=== PATIENT | male | born 1955 | race African-American/Black ===

== ENCOUNTER 2019-05-25 16:12 | Inpatient (IN) | payer OTHER ==
[2019-05-25 18:53] VITALS: BMI 29.0
--- NOTE | 2019-05-25 20:47 | HP ---
COWS - Scale Resting Pulse: 0= [place] 80 or Below Sweatin= Chills/Flushing Restless Observation: 1= Difficult to Sit Still Pupil Size: 0= Normal to Room Light Bone or Joint Aches: 4=Acute Joint/Muscle Pain Runny Nose/ Eye Tearin= Nasal Congestion GI Upset > 30mins: 1= Stomach Cramp Tremor Observation: 0= None Yawning Observation: 1= 1-2x During Session Anxiety or Irritability: 2=Irritable/Anxious Goose Flesh Skin: 0=Smooth Skin COWS Score: 11 CIWA Score - Admission Criteria OASAS Guidelines: Admission for Medically Managed Detox: Requires at least one of the followin. CIWA greater than 12 2. Seizures within the past 24 hours 3. Delirium tremens within the past 24 hours 4. Hallucinations within the past 24 hours 5. Acute intervention needed for co occurring medical disorder 6. Acute intervention needed for co occurring psychiatric disorder 7. Severe withdrawal that cannot be handled at a lower level of care (continued vomiting, continued diarrhea, abnormal vital signs) requiring intravenous medication and/or fluids 8. Admission [facility] Chief Complaint: c/o worsening withdrawal sx's. Allergies/Adverse Reactions: Allergies Allergy/AdvReac Type Severity Reaction Status Date / Time lisinopril Allergy Verified 05/25/19 18:41 History of Present Illness: 63 Y.O. MALE WITH CRACK/COCAINE AND HEROINE DEPENDENCE HERE FOR DETOX. CLIENT IS SELF REFERRED. THIS IS HIS FIRST ADMISSION. HX/O DETOX TXMENT MANY YEARS AGO. PRESENTS TODAY WITH C/O WITHDRAWAL SX'S. COWS 11. UTOX + ADRINA, MOP. DENIES ANY SIGNIFICANT PERIOD OF CLEAN TIME, HX/O OVERDOSE, SEIZURE D/O. DOMICILED, RETIRED, DENIES LEGALS Exam Limitations: No Limitations - Ebola screening Have you traveled outside of the country in the last 21 days: No Have you had contact with anyone from an Ebola affected area: No Do you have a fever: No - Review of Systems Constitutional: Chills, Night Sweats, Changes in sleep EENT: reports: Nose Congestion, Dental Problems (BOTH DENTURES ONLY HAS TOP WITH HIM) Respiratory: reports: No Symptoms reported Cardiac: reports: No Symptoms Reported, Palpitations, Other (DEFIBILLATOR) GI: reports: Abdominal cramping : reports: Other (HESITANCY) Musculoskeletal: reports: Back Pain (CHRONIC) Integumentary: reports: No Symptoms Reported Neuro: reports: No Symptoms reported Endocrine: reports: No Symptoms Reported Hematology: reports: No Symptoms Reported Psychiatric: reports: Orientated x3, Agitated (IRRITABLE), Anxious Other Systems: Reviewed and Negative Patient History - Patient Medical History Hx Anemia: No Hx Asthma: Yes Hx Chronic Obstructive Pulmonary Disease (COPD): Yes Hx Cancer: No Hx Cardiac Disorders: Yes (ARRYTHMIA-DEFIBILLATOR) Hx Congestive Heart Failure: No Hx Hypertension: Yes Hx Hypercholesterolemia: Yes Hx Pacemaker: Yes (DEFIBILLATOR) HX Cerebrovascular Accident: No Hx Seizures: No Hx Dementia: No Hx Diabetes: No Hx Gastrointestinal Disorders: No Hx Liver Disease: No Hx Genitourinary Disorders: No Hx Sexually Transmitted Disorders: No Hx Renal Disease (ESRD): No Hx Thyroid Disease: No Hx Human Immunodeficiency Virus (HIV): No Hx Hepatitis C: No Hx Depression: No Hx Suicide Attempt: No Hx Bipolar Disorder: No Hx Schizophrenia: No - Patient Surgical History Past Surgical History: Yes Hx Abdominal Surgery: Yes (HERNIA REPAIR) Other Surgical History: 2014 Anesthesia Reaction: No - PPD History Previous Implant?: Yes Documented Results: Positive w/o proof Implanted On Prior [facility] Admission?: No PPD to be Administered?: No - Smoking Cessation Smoking history: Current every day smoker Have you smoked in the past 12 months: Yes Aproximately how many cigarettes per day: 20 Cigars Per Day: 0 Hx Chewing Tobacco Use: No Initiated information on smoking cessation: Yes 'Breaking Loose' booklet given: 05/25/19 - Substance & Tx. History Hx Alcohol Use: No Hx Substance Use: Yes Substance Use Type: Cocaine, Heroin Hx Substance Use Treatment: Yes ([facility]) - Substances abused Cocaine Substance route: Smoking Frequency: Daily Amount used: $50 Age of first use: 15 Date of last use: 05/25/19 Heroin Other (specify): HEROIN Substance route: Inhalation Frequency: Daily Amount used: 2 BAGS Age of first use: 15 Date of last use: 05/25/19 Family Disease History - Family Disease History Family Disease History: CA: Father ( THROAT CA), Brother (PANCREATIC - ), Other: Mother (ALCOHOLISM- FROM CIRRHOSIS) Admission Physical Exam BHS - Vital Signs Vital Signs: Vital Signs - 24 hr 05/25/19 18:40 Temperature 97.4 F L Pulse Rate 69 Respiratory 18 Rate Blood Pressure 123/73 - Physical General Appearance: Yes: Irritable, Anxious HEENTM: Yes: EOMI, Normocephalic, Normal Voice, EMELY, Pharynx Normal, Other ( UPPER DENTURES) Respiratory: Yes: Chest Non-Tender, Lungs Clear, Normal Breath Sounds, No Respiratory Distress, No Accessory Muscle Use Neck: Yes: No masses,lesions,Nodules, Supple, Trachea in good position Breast: Yes: Breast Exam Deferred Cardiology: Yes: Regular Rhythm, Regular Rate, S1, S2 Abdominal: Yes: Normal Bowel Sounds, Non Tender, Soft, Protuberent Genitourinary: Yes: Hesitency Back: Yes: Normal Inspection Musculoskeletal: Yes: full range of Motion, Gait Steady, Back pain (C/O) Extremities: Yes: Normal Capillary Refill, Normal Range of Motion, Non-Tender Neurological: Yes: Fully Oriented, Alert, Motor Strength 5/5, Normal Mood/Affect Integumentary: Yes: Dry, Warm Lymphatic: Yes: Within Normal Limits - Diagnostic (1) Opioid dependence with withdrawal Current Visit: Yes Status: Acute (2) Cocaine abuse, uncomplicated Current Visit: Yes Status: Acute (3) Nicotine dependence Current Visit: Yes Status: Chronic Qualifiers: Nicotine product type: cigarettes Substance use status: uncomplicated Qualified Code(s): F17.210 - Nicotine dependence, cigarettes, uncomplicated (4) HTN (hypertension) Current Visit: Yes Status: Chronic Qualifiers: Hypertension type: essential hypertension Qualified Code(s): I10 - Essential (primary) hypertension (5) COPD (chronic obstructive pulmonary disease) Current Visit: Yes Status: Chronic Qualifiers: COPD type: unspecified COPD Qualified Code(s): J44.9 - Chronic obstructive pulmonary disease, unspecified (6) Asthma Current Visit: Yes Status: Chronic Qualifiers: Asthma severity: mild Asthma persistence: intermittent Asthma complication type: uncomplicated Qualified Code(s): J45.20 - Mild intermittent asthma, uncomplicated (7) HLD (hyperlipidemia) Current Visit: Yes Status: Chronic Qualifiers: Hyperlipidemia type: unspecified Qualified Code(s): E78.5 - Hyperlipidemia , unspecified (8) Cardiac defibrillator in place Current Visit: Yes Status: Chronic Cleared for Admission S - Detox or Rehab S Level of Care: Medically Managed Detox Regimen/Protocol: Methadone Claeared for Rehab Admission: No Breathalyzer - Breathalyzer Breathalyzer: 0 Urine Drug Screen - Test Device Lot number: [id number] Expiration date: 01/29/21 - Control Is test valid?: Yes - Results Drug screen NEGATIVE: No Urine drug screen results: ADRIAN-Cocaine, MOP-Opiates Inpatient Rehab Admission - Rehab Decision to Admit Inpatient rehab admission?: No
[2019-05-25] MEDS ORDERED: NALOXONE HCL 0.4 MG/ML VIAL IVPUSH PRN (20:57)
[2019-05-25] MEDS ORDERED: hydrOXYzine PAMOATE 25 MG CAPSULE (FP) PO PRN (20:57)
[2019-05-25] MEDS ORDERED: MAGNESIUM HYDROX 2400MG/30ML ORAL SUSPENSION 30 ML CUP PO PRN (20:57)
[2019-05-25] MEDS ORDERED: ONDANSETRON *ODT* 4 MG TABLET SL PRN (20:57)
[2019-05-25] MEDS ORDERED: DICYCLOMINE HCL 10 MG CAPSULE PO PRN (20:57)
[2019-05-25] MEDS ORDERED: MELATONIN 5 MG TABLETS PO PRN (20:57)
[2019-05-25] MEDS ORDERED: METHOCARBAMOL 500 MG TABLET PO PRN (20:57)
[2019-05-25] MEDS ORDERED: BISMUTH SUBSALICYLATE 524 MG/30 ML UD PO PRN (20:57)
[2019-05-25] MEDS ORDERED: ACETAMINOPHEN 325 MG TABLET (FP) PO PRN (20:57)
[2019-05-25] MEDS ORDERED: NICOTINE POLACRILEX 2 MG GUM BUC PRN (20:57)
[2019-05-25] MEDS ORDERED: guaiFENesin 200 MG/10 ML 10 ML UNIT-DOSE CUPS PO PRN (20:57)
[2019-05-25] MEDS ORDERED: MENTHOL/PHENOL 1 EACH UD MM PRN (20:57)
[2019-05-25] MEDS ORDERED: MAG HYDROX/AL HYDROX/SIMETH 30 ML UNIT-DOSE CUP PO PRN (20:57)
[2019-05-25] MEDS ORDERED: MAGNESIUM CITRATE 300 ML BOTTLE PO PRN (20:57)
[2019-05-25] MEDS ORDERED: P-EPHED 60MG/TRIPROLIDI 2.5MG TABLET PO PRN (20:57)
[2019-05-25] MEDS ORDERED: METHADONE HCL 10 MG TABLET (FOR DETOX USE ONLY) PO ONE (23:00)
[2019-05-25] MEDS: THIAMINE HCL 100 MG TABLET (FP) PO SCH (23:08)
[2019-05-25] MEDS: ATORVASTATIN CA 40 MG TABLET (FP) PO SCH (23:08)
--- NOTE | 2019-05-26 09:46 | PN ---
BHS COWS - Scale Resting Pulse: 0= [place] 80 or Below Sweatin= Chills/Flushing Restless Observation: 1= Difficult to Sit Still Pupil Size: 1= Pupils >than Normal Bone or Joint Aches: 1= Mild Discomfort Runny Nose/ Eye Tearin= Nasal Congestion GI Upset > 30mins: 1= Stomach Cramp Tremor Observation of Outstretched Hands: 2= Slight Tremor Visible Yawning Observation: 1= 1-2x During Session Anxiety or Irritability: 2=Irritable/Anxious Goose Flesh Skin: 0=Smooth Skin COWS Score: 11 BHS Progress Note (SOAP) Subjective: alert,irritable,anxious,interrupted sleep,pain in the body Objective: 05/26/19 09:45 Vital Signs Temperature 99 F 05/26/19 09:30 Pulse Rate 70 05/26/19 09:30 Respiratory Rate 18 05/26/19 09:30 Blood Pressure 131/93 05/26/19 09:30 O2 Sat by Pulse Oximetry (%) 05/26/19 09:46 labs pending Assessment: 05/26/19 09:46 withdrawal symptom Plan: continue detox
[2019-05-26] MEDS ORDERED: RIVAROXABAN 20 MG TABLET PO SCH (10:00)
[2019-05-26] MEDS ORDERED: DILTIAZEM HCL 240 MG PO SCH (10:00)
[2019-05-26] MEDS ORDERED: METHADONE HCL 5 MG TABLET (FOR DETOX USE ONLY) PO ONE (10:00)
[2019-05-26] MEDS ORDERED: CARVEDILOL 6.25 MG TABLET (FP) PO SCH (10:00)
[2019-05-26 10:03] LABS: ALBUMIN 3.1 g/dl (3.4-5.0); BILIRUBIN,TOTAL 0.5 mg/dL (0.2-1); BLOOD UREA NITROGEN 13.5 mg/dL (7-18); CALCIUM 8.7 mg/dL (8.5-10.1); CREATININE 1.2 mg/dL (0.55-1.3); POTASSIUM 4.9 mmol/L (3.5-5.1); TOT PROT 6.1 g/dl (6.4-8.2)
[2019-05-26 10:08] LABS: HEMOGLOBIN 9.9 GM/dL (11.7-16.9); MCH 28.1 pg (25.7-33.7); MCHC 31.8 g/dl (32.0-35.9); MEAN CELL VOLUME 88.5 fl (80-96); MEAN PLT VOLUME 8.7 fl (7.5-11.1); RBC 3.51 M/mm3 (4.00-5.60); RDW 17.1 % (11.9-15.9); WHITE BLOOD COUNT 5.5 K/mm3 (4.0-10.0)
[2019-05-26] MEDS: PANTOPRAZOLE 40 MG TABLET (FP) PO SCH (10:29)
[2019-05-26] MEDS: PRENATAL VITAMINS W/ FOLIC ACID TABLET (FP) PO SCH (10:29)
[2019-05-26] MEDS: SPIRONOLACTONE 25 MG TABLET (FP) PO SCH (10:30)
[2019-05-26] MEDS: BUDESONIDE/FORMETEROL FUMARATE 160/4.5 mcg INHALER IH SCH (10:30)
[2019-05-26] MEDS: FUROSEMIDE 20 MG TABLET (FP) PO SCH (10:30)
--- NOTE | 2019-05-26 10:33 | EKG ---
Test Reason : Blood Pressure : / mmHG Vent. Rate : 071 BPM Atrial Rate : 071 BPM P-R Int : 180 ms QRS Dur : 126 ms QT Int : 442 ms P-R-T Axes : 053 -42 202 degrees QTc Int : 480 ms NORMAL SINUS RHYTHM LEFT AXIS DEVIATION NON-SPECIFIC INTRA-VENTRICULAR CONDUCTION BLOCK MARKED T WAVE ABNORMALITY, CONSIDER ANTEROLATERAL ISCHEMIA ABNORMAL ECG NO PREVIOUS ECGS AVAILABLE Confirmed by Jose R Junior MD ([id number]) on 05/26/2019 10:33:08 AM Referred By: Confirmed By:Jose R Junior MD
[2019-05-26] MEDS: NICOTINE 21 MG/24 HOURS TOPICAL PATCH TD SCH (10:35)
--- NOTE | 2019-05-26 10:43 | PN ---
BHS Progress Note Note: patient is on carvedilol 6.25 po po bid instead of 0nce a day
[2019-05-26 10:48] LABS: PLATELET COUNT 342 K/MM3 (134-434)
[2019-05-26] MEDS: ACETAMINOPHEN 325 MG TABLET (FP) PO PRN (14:58)
[2019-05-26] MEDS: THIAMINE HCL 100 MG TABLET (FP) PO SCH (22:27)
[2019-05-26] MEDS: ATORVASTATIN CA 40 MG TABLET (FP) PO SCH (22:27)
[2019-05-26] MEDS: CARVEDILOL 6.25 MG TABLET (FP) PO SCH (22:27)
[2019-05-27] MEDS: ACETAMINOPHEN 325 MG TABLET (FP) PO PRN (07:46)
[2019-05-27] MEDS: FUROSEMIDE 20 MG TABLET (FP) PO SCH (09:53)
[2019-05-27] MEDS: PRENATAL VITAMINS W/ FOLIC ACID TABLET (FP) PO SCH (09:53)
[2019-05-27] MEDS: SPIRONOLACTONE 25 MG TABLET (FP) PO SCH (09:53)
[2019-05-27] MEDS: CARVEDILOL 6.25 MG TABLET (FP) PO SCH ×2 (09:53→22:21)
[2019-05-27] MEDS: PANTOPRAZOLE 40 MG TABLET (FP) PO SCH (09:53)
[2019-05-27] MEDS: BUDESONIDE/FORMETEROL FUMARATE 160/4.5 mcg INHALER IH SCH (09:53)
[2019-05-27] MEDS: NICOTINE 21 MG/24 HOURS TOPICAL PATCH TD SCH (09:55)
[2019-05-27] MEDS ORDERED: METHADONE HCL 10 MG TABLET (FOR DETOX USE ONLY) PO ONE (10:00)
--- NOTE | 2019-05-27 11:21 | PN ---
BHS COWS - Scale Resting Pulse: 1= [place] 81-100 Sweatin= Chills/Flushing Restless Observation: 1= Difficult to Sit Still Pupil Size: 0= Normal to Room Light Bone or Joint Aches: 1= Mild Discomfort Runny Nose/ Eye Tearin= None GI Upset > 30mins: 1= Stomach Cramp Tremor Observation of Outstretched Hands: 0= None Yawning Observation: 0= None Anxiety or Irritability: 1=Feels Anxious/Irritable Goose Flesh Skin: 0=Smooth Skin COWS Score: 6 BHS Progress Note (SOAP) Subjective: pt doing well with detox protocol, open to try suboxone for manager intermediate treatment of OUD O: Laboratory Tests 05/26/19 05/26/19 05/26/19 07:00 07:00 07:00 WBC 5.5 RBC 3.51 L Hgb 9.9 L Hct 31.0 L MCV 88.5 MCH 28.1 MCHC 31.8 L RDW 17.1 H Plt Count 342 MPV 8.7 Sodium 139 Potassium 4.9 Chloride 103 Carbon Dioxide 33 H Anion Gap 3 L BUN 13.5 Creatinine 1.2 Est GFR (CKD-EPI)AfAm 74.66 Est GFR (CKD-EPI)NonAf 64.42 Random Glucose 83 Calcium 8.7 Total Bilirubin 0.5 AST 21 ALT 19 Alkaline Phosphatase 74 Total Protein 6.1 L Albumin 3.1 L RPR Titer Nonreactive mild anemia' low protein a/p: OUD- continue detox protocol, outpt Suboxone treatment f/u PCP re anemia
[2019-05-27 12:48] LABS: PH,URINE 8.5 (5.0-8.0); URINE APPEARANCE CLEAR; URINE BILIRUBIN NEGATIVE (NEGATIVE); URINE COLOR YELLOW; URINE GLUCOSE (UA) NEGATIVE (NEGATIVE); URINE KETONE NEGATIVE (NEGATIVE); URINE LEUK ESTERASE NEGATIVE (NEGATIVE); URINE NITRITE NEGATIVE (NEGATIVE); URINE PROTEIN NEGATIVE (NEGATIVE); URINE UROBILINOGEN 0.2 mg/dL (0.2-1.0)
[2019-05-27] MEDS: RIVAROXABAN 20 MG TABLET PO SCH (17:47)
[2019-05-27] MEDS: ATORVASTATIN CA 40 MG TABLET (FP) PO SCH (22:21)
[2019-05-27] MEDS: THIAMINE HCL 100 MG TABLET (FP) PO SCH (22:21)
[2019-05-28] MEDS ORDERED: METHADONE HCL 5 MG TABLET (FOR DETOX USE ONLY) PO ONE (06:00)
--- NOTE | 2019-05-28 10:00 | PN ---
BHS COWS - Scale Resting Pulse: 0= [place] 80 or Below Sweatin= Chills/Flushing Restless Observation: 1= Difficult to Sit Still Pupil Size: 0= Normal to Room Light Bone or Joint Aches: 1= Mild Discomfort Runny Nose/ Eye Tearin= Nasal Congestion GI Upset > 30mins: 1= Stomach Cramp Tremor Observation of Outstretched Hands: 1= Tremor [place], Not Seen Yawning Observation: 0= None Anxiety or Irritability: 1=Feels Anxious/Irritable Goose Flesh Skin: 0=Smooth Skin COWS Score: 7 BHS Progress Note (SOAP) Subjective: alert,irritable,anxious,interrupted sleep Objective: 05/28/19 09:59 Vital Signs Temperature 98.1 F 05/28/19 09:09 Pulse Rate 78 05/28/19 09:09 Respiratory Rate 16 05/28/19 09:09 Blood Pressure 146/88 05/28/19 09:09 O2 Sat by Pulse Oximetry (%) Assessment: 05/28/19 09:59 withdrawal symptom Plan: continue detox,discharge in am
[2019-05-28] MEDS: SPIRONOLACTONE 25 MG TABLET (FP) PO SCH (10:37)
[2019-05-28] MEDS: PRENATAL VITAMINS W/ FOLIC ACID TABLET (FP) PO SCH (10:37)
[2019-05-28] MEDS: PANTOPRAZOLE 40 MG TABLET (FP) PO SCH (10:37)
[2019-05-28] MEDS: FUROSEMIDE 20 MG TABLET (FP) PO SCH (10:37)
[2019-05-28] MEDS: NICOTINE 21 MG/24 HOURS TOPICAL PATCH TD SCH (10:38)
[2019-05-28] MEDS: CARVEDILOL 6.25 MG TABLET (FP) PO SCH ×2 (10:38→22:19)
[2019-05-28] MEDS: BUDESONIDE/FORMETEROL FUMARATE 160/4.5 mcg INHALER IH SCH (10:38)
[2019-05-28] MEDS: RIVAROXABAN 20 MG TABLET PO SCH (17:47)
[2019-05-28] MEDS: ACETAMINOPHEN 325 MG TABLET (FP) PO PRN (19:42)
[2019-05-28] MEDS: THIAMINE HCL 100 MG TABLET (FP) PO SCH (22:19)
[2019-05-28] MEDS: ATORVASTATIN CA 40 MG TABLET (FP) PO SCH (22:19)
--- NOTE | 2019-05-29 08:31 | DS ---
[facility] Detox Discharge Summary Admission Date: 05/25/19 Discharge Date: 05/29/19 - History Present History: Cocaine Dependence, Opioid Dependence Additional Comments: Follow up with primary care provider. - Physical Exam Results Vital Signs: Vital Signs Temperature 97.7 F 05/29/19 06:21 Pulse Rate 66 05/29/19 06:21 Respiratory Rate 18 05/29/19 06:21 Blood Pressure 122/91 05/29/19 06:21 O2 Sat by Pulse Oximetry (%) - Treatment Hospital Course: Detox Protocol Followed, Detoxed Safely, Responded well, Discharged Condition Good Patient has Accepted a Rehab Referral to: Outpatient referral - Medication Discharge Medications: Ambulatory Orders Atorvastatin Ca [Lipitor] 40 mg PO HS 05/25/19 Budesonide/Formeterol Fumarate [SYMBICORT 160/4.5mcg -] 1 inh PO DAILY 05/25/19 Carvedilol 6.25 mg PO DAILY 05/25/19 Diltiazem HCl [Diltiazem ER] 240 mg PO DAILY 05/25/19 Furosemide [Lasix -] 20 mg PO DAILY 05/25/19 Pantoprazole Sodium 40 mg PO DAILY 05/25/19 Rivaroxaban [Xarelto -] 20 mg PO DAILY 05/25/19 Spironolactone 25 mg PO DAILY 05/25/19 - Diagnosis (1) Cocaine abuse, uncomplicated Status: Acute (2) Opioid dependence with withdrawal Status: Acute (3) Asthma Status: Chronic Qualifiers: Asthma severity: mild Asthma persistence: intermittent Asthma complication type: uncomplicated Qualified Code(s): J45.20 - Mild intermittent asthma, uncomplicated (4) COPD (chronic obstructive pulmonary disease) Status: Chronic Qualifiers: COPD type: unspecified COPD Qualified Code(s): J44.9 - Chronic obstructive pulmonary disease, unspecified (5) Cardiac defibrillator in place Status: Chronic (6) HLD (hyperlipidemia) Status: Chronic Qualifiers: Hyperlipidemia type: unspecified Qualified Code(s): E78.5 - Hyperlipidemia , unspecified (7) HTN (hypertension) Status: Chronic Qualifiers: Hypertension type: essential hypertension Qualified Code(s): I10 - Essential (primary) hypertension (8) Nicotine dependence Status: Chronic Qualifiers: Nicotine product type: cigarettes Substance use status: uncomplicated Qualified Code(s): F17.210 - Nicotine dependence, cigarettes, uncomplicated - AMA Did Patient Leave Against Medical Advice: No
[2019-05-29] MEDS: CARVEDILOL 6.25 MG TABLET (FP) PO SCH (09:09)
[2019-05-29] MEDS: FUROSEMIDE 20 MG TABLET (FP) PO SCH (09:09)
[2019-05-29] MEDS: NICOTINE 21 MG/24 HOURS TOPICAL PATCH TD SCH (09:10)
[2019-05-29] MEDS: BUDESONIDE/FORMETEROL FUMARATE 160/4.5 mcg INHALER IH SCH (09:10)
[2019-05-29] MEDS: PANTOPRAZOLE 40 MG TABLET (FP) PO SCH (09:10)
[2019-05-29] MEDS: SPIRONOLACTONE 25 MG TABLET (FP) PO SCH (09:10)
[2019-05-29] MEDS: PRENATAL VITAMINS W/ FOLIC ACID TABLET (FP) PO SCH (09:10)
[2019-05-29 09:33] VITALS: BP 137/84; PULSE 67; TEMP 96.8
== END 2019-05-29 09:30 | disposition home or self-care (01) | DRG 773 ==
LOC: YASAS 16:12 → Y6N 21:14
PROVIDERS: ADMIT Surgery; ATTEND Surgery
PROC: HZ2ZZZZ Detoxification Services for Substance Abuse Treatment (ICD-10-PCS; principal; 2019-05-25)
DX: F11.23 Opioid dependence with withdrawal (principal); F14.20 Cocaine dependence, uncomplicated; F17.210 Nicotine dependence, cigarettes, uncomplicated; J45.20 Mild intermittent asthma, uncomplicated; J44.9 Chronic obstructive pulmonary disease, unspecified; I10 Essential (primary) hypertension; D64.9 Anemia, unspecified; Z86.73 Personal history of transient ischemic attack (TIA), and cerebral infarction without residual deficits; Z95.810 Presence of automatic (implantable) cardiac defibrillator
CPT/HCPCS: 36415; 71045-TC-FY; 80053; 81003; 85027; 86593; 93005; 93010

== ENCOUNTER 2019-07-28 13:16 | Inpatient (IN) | payer OTHER ==
[2019-07-28 15:48] VITALS: BMI 29.8
--- NOTE | 2019-07-28 16:37 | HP ---
COWS - Scale Resting Pulse: 1= [place] 81-100 Sweatin= Chills/Flushing Restless Observation: 1= Difficult to Sit Still Pupil Size: 1= Pupils >than Normal Bone or Joint Aches: 2= Severe Diffuse Aches Runny Nose/ Eye Tearin= Nasal Congestion GI Upset > 30mins: 2= Nausea/Diarrhea Tremor Observation: 1= Tremor [place], Not Seen Yawning Observation: 1= 1-2x During Session Anxiety or Irritability: 1=Feels Anxious/Irritable Goose Flesh Skin: 0=Smooth Skin COWS Score: 12 CIWA Score - Admission Criteria OASAS Guidelines: Admission for Medically Managed Detox: Requires at least one of the followin. CIWA greater than 12 2. Seizures within the past 24 hours 3. Delirium tremens within the past 24 hours 4. Hallucinations within the past 24 hours 5. Acute intervention needed for co occurring medical disorder 6. Acute intervention needed for co occurring psychiatric disorder 7. Severe withdrawal that cannot be handled at a lower level of care (continued vomiting, continued diarrhea, abnormal vital signs) requiring intravenous medication and/or fluids 8. Admission [facility] Chief Complaint: here for heroin detox Allergies/Adverse Reactions: Allergies Allergy/AdvReac Type Severity Reaction Status Date / Time lisinopril Allergy Verified 07/28/19 15:33 History of Present Illness: 63 yo with CAD with low ejection fraction and with heart debrillator in place, HTN, high cholesterol last in detox about 3 weeks ago at [facility] and 2 months ago here, says he keeps relapsing. Pt states he lives with his . No h/o of OD, retired. Does not want to go for residential MAT or rehab. Heroin 1- 1/2 bags/day, no cocaine- $50/day PCP- in [place] [facility]- suzanna, Mop, oxy, MTD - Ebola screening Have you traveled outside of the country in the last 21 days: No Have you had contact with anyone from an Ebola affected area: No Do you have a fever: No - Review of Systems Constitutional: No Symptoms Reported, Weight Stable EENT: reports: No Symptoms Reported Respiratory: reports: No Symptoms reported Cardiac: reports: No Symptoms Reported GI: reports: No Symptoms Reported : reports: No Symptoms Reported Musculoskeletal: reports: No Symptoms Reported Integumentary: reports: No Symptoms Reported Neuro: reports: No Symptoms reported Endocrine: reports: No Symptoms Reported Hematology: reports: No Symptoms Reported Psychiatric: reports: No Sypmtoms Reported Patient History - Patient Medical History Hx Anemia: No Hx Asthma: Yes Hx Chronic Obstructive Pulmonary Disease (COPD): Yes Hx Cancer: No Hx Cardiac Disorders: Yes (ARRYTHMIA-DEFIBILLATOR) Hx Congestive Heart Failure: No Hx Hypertension: No Hx Hypercholesterolemia: Yes Hx Pacemaker: Yes (DEFIBILLATOR) HX Cerebrovascular Accident: No Hx Seizures: No Hx Dementia: No Hx Diabetes: No Hx Gastrointestinal Disorders: No Hx Liver Disease: No Hx Genitourinary Disorders: No Hx Sexually Transmitted Disorders: No Hx Renal Disease (ESRD): No Hx Thyroid Disease: No Hx Human Immunodeficiency Virus (HIV): No Hx Hepatitis C: No Hx Depression: No Hx Suicide Attempt: No Hx Bipolar Disorder: No Hx Schizophrenia: No - Patient Surgical History Past Surgical History: Yes Hx Neurologic Surgery: No Hx Cataract Extraction: No Hx Cardiac Surgery: No Hx Lung Surgery: No Hx Breast Surgery: No Hx Breast Biopsy: No Hx Abdominal Surgery: Yes (HERNIA REPAIR) Hx Appendectomy: No Hx Cholecystectomy: No Hx Genitourinary Surgery: No Hx Section: No Hx Orthopedic Surgery: No Other Surgical History: 2014 Anesthesia Reaction: No - Smoking Cessation Smoking history: Current every day smoker Have you smoked in the past 12 months: Yes Aproximately how many cigarettes per day: 20 Cigars Per Day: 0 Hx Chewing Tobacco Use: No Initiated information on smoking cessation: Yes 'Breaking Loose' booklet given: 07/28/19 - Substances abused Cocaine Substance route: Smoking Frequency: Daily Amount used: $50 Age of first use: 15 Date of last use: 07/28/19 Heroin Other (specify): HEROIN Substance route: Inhalation Frequency: Daily Amount used: 2 BAGS Age of first use: 15 Date of last use: 07/28/19 Crack Substance route: Smoking Frequency: Daily Amount used: $50 Age of first use: 15 Date of last use: 07/28/19 Family Disease History - Family Disease History Family Disease History: CA: Father ( THROAT CA), Brother (PANCREATIC - ), Other: Mother (ALCOHOLISM- FROM CIRRHOSIS) Admission Physical Exam BHS - Vital Signs Vital Signs: Vital Signs - 24 hr 07/28/19 15:32 Temperature 97.8 F Pulse Rate 63 Respiratory 18 Rate Blood Pressure 120/83 - Physical General Appearance: Yes: Within Normal Limits, No Apparent Distress HEENTM: Yes: Hearing grossly Normal Respiratory: Yes: Lungs Clear Neck: Yes: No masses,lesions,Nodules Cardiology: Yes: Within Normal Limits, Regular Rate, Systolic Murmur Abdominal: Yes: Within Normal Limits Genitourinary: Yes: Within Normal Limits Back: Yes: Within Normal Limits Musculoskeletal: Yes: Within Normal Limits Extremities: Yes: Within Normal Limits Neurological: Yes: Within Normal Limits, wool tamper II-XII NML intact, Fully Oriented, Alert Integumentary: Yes: Within Normal Limits Lymphatic: Yes: Within Normal Limits - Diagnostic (1) Cocaine abuse, uncomplicated Current Visit: No Status: Acute (2) Opioid dependence with withdrawal Current Visit: No Status: Acute (3) Asthma Current Visit: No Status: Chronic Qualifiers: Asthma severity: mild Asthma persistence: intermittent Asthma complication type: uncomplicated Qualified Code(s): J45.20 - Mild intermittent asthma, uncomplicated (4) Cardiac defibrillator in place Current Visit: No Status: Chronic (5) HLD (hyperlipidemia) Current Visit: No Status: Chronic Qualifiers: Hyperlipidemia type: unspecified Qualified Code(s): E78.5 - Hyperlipidemia , unspecified (6) HTN (hypertension) Current Visit: No Status: Chronic Qualifiers: Hypertension type: essential hypertension Qualified Code(s): I10 - Essential (primary) hypertension (7) Nicotine dependence Current Visit: No Status: Chronic Qualifiers: Nicotine product type: cigarettes Substance use status: uncomplicated Qualified Code(s): F17.210 - Nicotine dependence, cigarettes, uncomplicated Breathalyzer - Breathalyzer Breathalyzer: 0 Urine Drug Screen - Test Device Lot number: [id number] Expiration date: 05/01/21 - Control Is test valid?: Yes - Results Drug screen NEGATIVE: No Urine drug screen results: SUZANNA-Cocaine, MOP-Opiates, OXY-Oxycodone, MTD- Methadone Inpatient Rehab Admission - Rehab Decision to Admit Inpatient rehab admission?: No
[2019-07-28] MEDS ORDERED: NALOXONE HCL 0.4 MG/ML VIAL IM PRN (16:43)
[2019-07-28] MEDS ORDERED: METHOCARBAMOL 500 MG TABLET PO PRN (16:43)
[2019-07-28] MEDS ORDERED: hydrOXYzine PAMOATE 25 MG CAPSULE (FP) PO PRN (16:43)
[2019-07-28] MEDS ORDERED: METHADONE HCL 10 MG TABLET (FOR DETOX USE ONLY) PO ONE (16:43)
[2019-07-28] MEDS ORDERED: ACETAMINOPHEN 325 MG TABLET (FP) PO PRN ×2 (16:43)
[2019-07-28] MEDS ORDERED: clonazePAM 0.5 MG TABLET PO PRN (16:43)
[2019-07-28] MEDS ORDERED: MELATONIN 5 MG TABLETS PO PRN (16:43)
[2019-07-28] MEDS ORDERED: IBUPROFEN 400 MG TABLET (FP) PO PRN (16:43)
[2019-07-28] MEDS ORDERED: MAGNESIUM HYDROX 2400MG/30ML ORAL SUSPENSION 30 ML CUP PO PRN (16:43)
[2019-07-28] MEDS ORDERED: BISMUTH SUBSALICYLATE 524 MG/30 ML UD PO PRN (16:43)
[2019-07-28] MEDS ORDERED: cloNIDine HCL 0.1 MG TABLET PO PRN (16:43)
[2019-07-28] MEDS ORDERED: MENTHOL/PHENOL 1 EACH UD MM PRN (16:43)
[2019-07-28] MEDS ORDERED: MAGNESIUM CITRATE 300 ML BOTTLE PO PRN (16:43)
[2019-07-28] MEDS ORDERED: MAG HYDROX/AL HYDROX/SIMETH 30 ML UNIT-DOSE CUP PO PRN (16:43)
[2019-07-28] MEDS ORDERED: NICOTINE POLACRILEX 4 MG GUM BUC PRN (16:43)
[2019-07-28] MEDS ORDERED: PNEUMOC 13-VAL CONJ-DIP CRM/PF 0.5 ML DISP.SYRIN IM ONE (17:35)
[2019-07-28] MEDS: RIVAROXABAN 20 MG TABLET PO SCH (19:01)
[2019-07-28] MEDS: ALBUTEROL SO4 8 GM HFA INHALER IH PRN (19:03)
[2019-07-28] MEDS: BUDESONIDE/FORMETEROL FUMARATE 160/4.5 mcg INHALER IH SCH (19:04)
[2019-07-28] MEDS: CARVEDILOL 6.25 MG TABLET (FP) PO SCH (22:26)
[2019-07-28] MEDS: ATORVASTATIN CA 40 MG TABLET (FP) PO SCH (22:26)
[2019-07-28] MEDS: THIAMINE HCL 100 MG TABLET (FP) PO SCH (22:26)
[2019-07-29] MEDS ORDERED: METHADONE HCL 5 MG TABLET (FOR DETOX USE ONLY) PO ONE (10:00)
--- NOTE | 2019-07-29 10:02 | PN ---
BHS COWS - Scale Resting Pulse: 0= [place] 80 or Below Sweatin= Chills/Flushing Restless Observation: 1= Difficult to Sit Still Pupil Size: 1= Pupils >than Normal Bone or Joint Aches: 2= Severe Diffuse Aches Runny Nose/ Eye Tearin= Nasal Congestion GI Upset > 30mins: 2= Nausea/Diarrhea Tremor Observation of Outstretched Hands: 2= Slight Tremor Visible Yawning Observation: 1= 1-2x During Session Anxiety or Irritability: 2=Irritable/Anxious Goose Flesh Skin: 0=Smooth Skin COWS Score: 13 BHS Progress Note (SOAP) Subjective: alert,irritable,anxious,interrupted sleep,tremor,pain in the body and back Objective: 07/29/19 10:01 Vital Signs Temperature 98.2 F 07/29/19 09:16 Pulse Rate 70 07/29/19 09:16 Respiratory Rate 18 07/29/19 09:16 Blood Pressure 124/71 07/29/19 09:16 O2 Sat by Pulse Oximetry (%) labs pending Assessment: 07/29/19 10:01 withdrawal symptom Plan: continue detox methadone regimen
[2019-07-29 10:11] LABS: HEMATOCRIT 30.4 % (35.4-49); HEMOGLOBIN 9.6 GM/dL (11.7-16.9); MCH 27.9 pg (25.7-33.7); MCHC 31.5 g/dl (32.0-35.9); MEAN CELL VOLUME 88.6 fl (80-96); MEAN PLT VOLUME 9.3 fl (7.5-11.1); PLATELET COUNT 242 K/MM3 (134-434); RBC 3.43 M/mm3 (4.00-5.60); RDW 16.5 % (11.9-15.9); WHITE BLOOD COUNT 4.9 K/mm3 (4.0-10.0)
[2019-07-29 10:17] LABS: ALBUMIN 3.4 g/dl (3.4-5.0); BILIRUBIN,TOTAL 0.3 mg/dL (0.2-1); CALCIUM 8.3 mg/dL (8.5-10.1); CREATININE 1.5 mg/dL (0.55-1.3); POTASSIUM 4.4 mmol/L (3.5-5.1)
[2019-07-29] MEDS: CARVEDILOL 6.25 MG TABLET (FP) PO SCH ×2 (10:28→22:28)
[2019-07-29] MEDS: PRENATAL VITAMINS W/ FOLIC ACID TABLET (FP) PO SCH (10:28)
[2019-07-29] MEDS: PANTOPRAZOLE 40 MG TABLET (FP) PO SCH (10:29)
[2019-07-29] MEDS: BUDESONIDE/FORMETEROL FUMARATE 160/4.5 mcg INHALER IH SCH (10:29)
[2019-07-29] MEDS: FUROSEMIDE 20 MG TABLET (FP) PO SCH (10:29)
[2019-07-29] MEDS: SPIRONOLACTONE 25 MG TABLET (FP) PO SCH (10:29)
[2019-07-29] MEDS ORDERED: PNEUMOCOCCAL 23 VACCINE 0.5 ML VIAL IM ONE (12:00)
[2019-07-29] MEDS: ALBUTEROL SO4 8 GM HFA INHALER IH PRN ×2 (12:53→17:50)
[2019-07-29] MEDS: RIVAROXABAN 20 MG TABLET PO SCH (19:04)
[2019-07-29] MEDS: ALBUTEROL SO4 0.083% IH SOL 2.5 MG/3 ML VIAL.NEB. NEB PRN (20:44)
[2019-07-29] MEDS: ATORVASTATIN CA 40 MG TABLET (FP) PO SCH (22:28)
[2019-07-29] MEDS: THIAMINE HCL 100 MG TABLET (FP) PO SCH (22:28)
[2019-07-30] MEDS: FERROUS SO4 325 MG TABLET (FP) PO SCH ×2 (07:00→17:29)
[2019-07-30] MEDS: ALBUTEROL SO4 0.083% IH SOL 2.5 MG/3 ML VIAL.NEB. NEB PRN (07:29)
[2019-07-30] MEDS ORDERED: METHADONE HCL 10 MG TABLET (FOR DETOX USE ONLY) PO ONE (10:00)
[2019-07-30] MEDS: SPIRONOLACTONE 25 MG TABLET (FP) PO SCH (10:09)
[2019-07-30] MEDS: PRENATAL VITAMINS W/ FOLIC ACID TABLET (FP) PO SCH (10:09)
[2019-07-30] MEDS: PANTOPRAZOLE 40 MG TABLET (FP) PO SCH (10:10)
[2019-07-30] MEDS: FUROSEMIDE 20 MG TABLET (FP) PO SCH (10:10)
[2019-07-30] MEDS: CARVEDILOL 6.25 MG TABLET (FP) PO SCH ×2 (10:10→22:24)
[2019-07-30] MEDS: BUDESONIDE/FORMETEROL FUMARATE 160/4.5 mcg INHALER IH SCH (10:11)
--- NOTE | 2019-07-30 10:29 | PN ---
S COWS - Scale Resting Pulse: 0= [place] 80 or Below Sweatin= No chills or Flushing Restless Observation: 1= Difficult to Sit Still Pupil Size: 1= Pupils >than Normal Bone or Joint Aches: 1= Mild Discomfort Runny Nose/ Eye Tearin= Runny Nose/Eyes GI Upset > 30mins: 2= Nausea/Diarrhea Tremor Observation of Outstretched Hands: 1= Tremor [place], Not Seen Yawning Observation: 1= 1-2x During Session Anxiety or Irritability: 2=Irritable/Anxious Goose Flesh Skin: 0=Smooth Skin COWS Score: 11 [facility] Progress Note (SOAP) Subjective: alert,irritable,anxious,interrupted sleep,pain in the body Objective: 07/30/19 10:27 Vital Signs Temperature 96.6 F L 07/30/19 09:28 Pulse Rate 67 07/30/19 09:28 Respiratory Rate 18 07/30/19 09:28 Blood Pressure 142/87 07/30/19 09:28 O2 Sat by Pulse Oximetry (%) Laboratory Last Values WBC 4.9 K/mm3 (4.0-10.0) 07/29/19 07:00 RBC 3.43 M/mm3 (4.00-5.60) L 07/29/19 07:00 Hgb 9.6 GM/dL (11.7-16.9) L 07/29/19 07:00 Hct 30.4 % (35.4-49) L 07/29/19 07:00 MCV 88.6 fl (80-96) 07/29/19 07:00 MCH 27.9 pg (25.7-33.7) 07/29/19 07:00 MCHC 31.5 g/dl (32.0-35.9) L 07/29/19 07:00 RDW 16.5 % (11.9-15.9) H 07/29/19 07:00 Plt Count 242 K/MM3 (134-434) D 07/29/19 07:00 MPV 9.3 fl (7.5-11.1) 07/29/19 07:00 Sodium 139 mmol/L (136-145) 07/29/19 07:00 Potassium 4.4 mmol/L (3.5-5.1) 07/29/19 07:00 Chloride 104 mmol/L (98-107) 07/29/19 07:00 Carbon Dioxide 30 mmol/L (21-32) 07/29/19 07:00 Anion Gap 5 MMOL/L (8-16) L 07/29/19 07:00 BUN 22.0 mg/dL (7-18) H 07/29/19 07:00 Creatinine 1.5 mg/dL (0.55-1.3) H 07/29/19 07:00 Est GFR (CKD-EPI)AfAm 57.01 07/29/19 07:00 Est GFR (CKD-EPI)NonAf 49.19 07/29/19 07:00 Random Glucose 81 mg/dL (74-106) 07/29/19 07:00 Calcium 8.3 mg/dL (8.5-10.1) L 07/29/19 07:00 Total Bilirubin 0.3 mg/dL (0.2-1) 07/29/19 07:00 AST 14 U/L (15-37) L 07/29/19 07:00 ALT 16 U/L (13-61) 07/29/19 07:00 Alkaline Phosphatase 84 U/L (45-117) 07/29/19 07:00 Total Protein 6.0 g/dl (6.4-8.2) L 07/29/19 07:00 Albumin 3.4 g/dl (3.4-5.0) 07/29/19 07:00 RPR Titer Nonreactive (NONREACTIVE) 07/29/19 07:00 Assessment: 07/30/19 10:27 withdrawal symptom Plan: continue detox,encourage oral fluid,discharge in am
[2019-07-30] MEDS: RIVAROXABAN 20 MG TABLET PO SCH (17:29)
[2019-07-30 20:37] VITALS: PULSE 70
[2019-07-30] MEDS: ATORVASTATIN CA 40 MG TABLET (FP) PO SCH (22:24)
[2019-07-30] MEDS: THIAMINE HCL 100 MG TABLET (FP) PO SCH (22:24)
[2019-07-31] MEDS ORDERED: METHADONE HCL 5 MG TABLET (FOR DETOX USE ONLY) PO ONE (06:00)
[2019-07-31] MEDS: ALBUTEROL SO4 0.083% IH SOL 2.5 MG/3 ML VIAL.NEB. NEB PRN (06:46)
[2019-07-31 06:58] VITALS: BP 133/93; TEMP 98.1
--- NOTE | 2019-07-31 08:23 | DS ---
[facility] Detox Discharge Summary Admission Date: 07/28/19 Discharge Date: 07/31/19 - History Present History: Cocaine Dependence, Opioid Dependence - Physical Exam Results Vital Signs: Vital Signs Temperature 98.1 F 07/31/19 06:00 Pulse Rate 70 07/31/19 06:00 Respiratory Rate 18 07/31/19 06:00 Blood Pressure 133/93 07/31/19 06:00 O2 Sat by Pulse Oximetry (%) Pertinent Admission Physical Exam Findings: pt arrived in withdrawal sx Laboratory Tests 07/29/19 07/29/19 07/29/19 07:00 07:00 07:00 WBC 4.9 RBC 3.43 L Hgb 9.6 L Hct 30.4 L MCV 88.6 MCH 27.9 MCHC 31.5 L RDW 16.5 H Plt Count 242 D MPV 9.3 Sodium 139 Potassium 4.4 Chloride 104 Carbon Dioxide 30 Anion Gap 5 L BUN 22.0 H Creatinine 1.5 H Est GFR (CKD-EPI)AfAm 57.01 Est GFR (CKD-EPI)NonAf 49.19 Random Glucose 81 Calcium 8.3 L Total Bilirubin 0.3 AST 14 L ALT 16 Alkaline Phosphatase 84 Total Protein 6.0 L Albumin 3.4 RPR Titer Nonreactive today pt is aaox3 ambulating no acute distress - Treatment Hospital Course: Detox Protocol Followed, Detoxed Safely, Responded well, Discharged Condition Good, Rehab Referral Accepted Patient has Accepted a Rehab Referral to: pt declined rehab; referral provided - Medication Discharge Medications: Ambulatory Orders Atorvastatin Ca [Lipitor] 40 mg PO HS 05/25/19 Budesonide/Formeterol Fumarate [SYMBICORT 160/4.5mcg -] 1 inh PO DAILY PRN 05/25 Carvedilol 6.25 mg PO BID 05/25/19 Diltiazem HCl [Diltiazem ER] 240 mg PO DAILY 05/25/19 Furosemide [Lasix -] 20 mg PO DAILY 05/25/19 Pantoprazole Sodium 40 mg PO DAILY 05/25/19 Rivaroxaban [Xarelto -] 20 mg PO DAILY 05/25/19 Spironolactone 12.5 mg PO DAILY 05/25/19 - Diagnosis (1) Cocaine abuse, uncomplicated Current Visit: No Status: Acute (2) Opioid dependence with withdrawal Current Visit: No Status: Acute (3) Asthma Current Visit: No Status: Chronic Qualifiers: Asthma severity: mild Asthma persistence: intermittent Asthma complication type: uncomplicated Qualified Code(s): J45.20 - Mild intermittent asthma, uncomplicated (4) COPD (chronic obstructive pulmonary disease) Current Visit: No Status: Chronic Qualifiers: COPD type: unspecified COPD Qualified Code(s): J44.9 - Chronic obstructive pulmonary disease, unspecified (5) Cardiac defibrillator in place Current Visit: No Status: Chronic (6) HLD (hyperlipidemia) Current Visit: No Status: Chronic Qualifiers: Hyperlipidemia type: unspecified Qualified Code(s): E78.5 - Hyperlipidemia , unspecified (7) HTN (hypertension) Current Visit: No Status: Chronic Qualifiers: Hypertension type: essential hypertension Qualified Code(s): I10 - Essential (primary) hypertension (8) Nicotine dependence Current Visit: No Status: Chronic Qualifiers: Nicotine product type: cigarettes Substance use status: uncomplicated Qualified Code(s): F17.210 - Nicotine dependence, cigarettes, uncomplicated - AMA Did Patient Leave Against Medical Advice: No
== END 2019-07-31 08:50 | disposition home or self-care (01) | DRG 773 ==
LOC: YASAS 13:16 → Y6N 17:02
PROVIDERS: ADMIT Surgery; ATTEND Surgery
PROC: HZ2ZZZZ Detoxification Services for Substance Abuse Treatment (ICD-10-PCS; principal; 2019-07-28)
DX: F11.23 Opioid dependence with withdrawal (principal); F14.20 Cocaine dependence, uncomplicated; F17.210 Nicotine dependence, cigarettes, uncomplicated; I10 Essential (primary) hypertension; E78.5 Hyperlipidemia, unspecified; J44.9 Chronic obstructive pulmonary disease, unspecified; J45.20 Mild intermittent asthma, uncomplicated; Z86.79 Personal history of other diseases of the circulatory system; Z95.810 Presence of automatic (implantable) cardiac defibrillator
CPT/HCPCS: 36415; 80053; 85027; 86593; 90732; 94640; G0009

== ENCOUNTER 2019-11-09 19:08 | Inpatient (IN) | payer BC, OTHER ==
--- NOTE | 2019-11-09 19:52 | PDOC ---
History of Present Illness - General Stated Complaint: SHORTNESS OF BREATH Time Seen by Provider: 11/09/19 19:52 History Source: Patient Exam Limitations: No Limitations - History of Present Illness Initial Comments: 11/09/19 19:52 Zeus Maier is a 64M with PMH HTN, HLD, heroin/cocaine use disorder, and anemia sent from [facility] for SOB and r/o anemia. Patient reported to [facility] today for heroin detox, last use this morning. Does not report any SOB or any other symptoms at this time. Per EMS report, patient was satting in the 70s on the pulse ox at [facility], but EMS pulse ox showed saturation in high 90s. Transferred to [facility] ED for evaluation for anemia. Says that last time he was SOB was when he needed a transfusion, has gotten in the past. Denies chest pain, SOB, palpitations, abd pain, weakness, dizziness, constipation, diarrhea, nausea, vomiting. Denies bloody stools. Past History - Past Medical History Allergies/Adverse Reactions: Allergies Allergy/AdvReac Type Severity Reaction Status Date / Time lisinopril Allergy Verified 11/09/19 16:44 Home Medications: Ambulatory Orders Atorvastatin Ca [Lipitor] 40 mg PO HS 05/25/19 Budesonide/Formeterol Fumarate [SYMBICORT 160/4.5mcg -] 1 inh PO DAILY PRN 05/25 Carvedilol 6.25 mg PO BID 05/25/19 Diltiazem HCl [Diltiazem ER] 240 mg PO DAILY 05/25/19 Furosemide [Lasix -] 20 mg PO DAILY 05/25/19 Pantoprazole Sodium 40 mg PO DAILY 05/25/19 Rivaroxaban [Xarelto -] 20 mg PO DAILY 05/25/19 Spironolactone 12.5 mg PO DAILY 05/25/19 Amiodarone HCl 100 mg PO DAILY 11/09/19 Ferrous Fumarate 324 mg PO DAILY 11/09/19 Folic Acid 1 mg PO DAILY 11/09/19 Umeclidinium Brm/Vilanterol Tr [Anoro Ellipta 62.5-25 Mcg INH] 1 each IH DAILY 11/09/19 Anemia: No Asthma: Yes Cancer: No Cardiac Disorders: Yes CVA: No COPD: No CHF: No Dementia: No Diabetes: No GI Disorders: No Disorders: No HTN: Yes Hypercholesterolemia: Yes Kidney Stones: No Liver Disease: No Seizures: No Thyroid Disease: No - Surgical History Abdominal Surgery: Yes (HERNIA REPAIR) Appendectomy: No Cardiac Surgery: No Cholecystectomy: No Lung Surgery: No Neurologic Surgery: No Orthopedic Surgery: No - Reproductive History Testicular Surgery: No - Psycho Social/Smoking Cessation Hx Smoking History: Current every day smoker Have you smoked in the past 12 months: Yes Number of Cigarettes Smoked Daily: 20 Cigars Per Day: 0 Information on smoking cessation initiated: No 'Breaking Loose' booklet given: 07/28/19 Hx Alcohol Use: No Drug/Substance Use Hx: Yes Substance Use Type: Cocaine, Heroin Hx Substance Use Treatment: No Review of Systems - Review of Systems Able to Perform ROS?: Yes Constitutional: No: Symptoms Reported HEENTM: No: Symptoms Reported Respiratory: Yes: Shortness of Breath Cardiac (ROS): No: Symptoms Reported ABD/GI: No: Symptoms Reported : No: Symptoms Reported Musculoskeletal: No: Symptoms Reported Integumentary: No: Symptoms Reported Neurological: No: Symptoms reported Endocrine: No: Symptoms Reported Hematologic/Lymphatic: No: Symptoms Reported All Other Systems: Reviewed and Negative *Physical Exam - Vital Signs Last Vital Signs Temp Pulse Resp BP Pulse Ox 98.1 F 71 16 120/76 99 11/09/19 19:33 11/09/19 19:33 11/09/19 19:33 11/09/19 19:33 11/09/19 19:33 - Physical Exam General Appearance: Yes: Nourished, Appropriately Dressed. No: Apparent Distress HEENT: positive: EOMI, EMELY, Normal Voice, Symmetrical, Pharynx Normal, Hearing Grossly Normal. negative: Scleral Icterus (R), Scleral Icterus (L), Pharyngeal Erythema, Tonsillar Exudate, Tonsillar Erythema Neck: positive: Trachea midline, Normal Thyroid, Supple. negative: Tender, Rigid, Lymphadenopathy (R), Lymphadenopathy (L) Respiratory/Chest: positive: Lungs Clear, Normal Breath Sounds. negative: Chest Tender, Respiratory Distress, Accessory Muscle Use, Crackles, Rales, Rhonchi, Stridor, Wheezing Cardiovascular: positive: Regular Rhythm, Regular Rate. negative: Murmur Gastrointestinal/Abdominal: positive: Normal Bowel Sounds, Flat, Soft. negative : Tender, Organomegaly, Pulsatile Mass, Protuberent, Guarding, Rebound, Mass Rectal Exam: positive: heme negative stool, normal exam, NL Prostate, normal rectal tone. negative: melena, decreased tone, hemorrhoids Musculoskeletal: positive: Normal Inspection. negative: Vertebral Tenderness Extremity: positive: Normal Capillary Refill, Normal Inspection, Normal Range of Motion, Pelvis Stable. negative: Tender Integumentary: positive: Normal Color, Dry, Warm. negative: Cold, Clammy Neurologic: positive: Fully Oriented, Alert, Normal Mood/Affect, Normal Response ED Treatment Course - LABORATORY CBC & Chemistry Diagram: 11/09/19 20:36 11/09/19 20:36 Medical Decision Making - Medical Decision Making 11/09/19 19:52 Zeus Maier is a 64M with PMH HTN, HLD, heroin use disorder, and anemia sent from [facility] for SOB and O2sat to 70s. Patient is asymptomatic, resting comfortably in bed, not on oxygen. Evaluating for anemia vs. electrolyte abnormality via: ECG CXR CBC CMP CP Coags Mag 11/09/19 22:12 Labs notable for: - Hbg 8.1 - trop 0.02 Patient is not anemic at this time, but Hgb decreased from 9.6 last time. On iron pills. Unclear etiology for Hgb drop, denies bloody stools. CXR unremarkable. FOBT negative. Patient has symptomatic anemia, Hgb 8.1, has history of CAD but no clear reason for anemia. Transfusing 1 unit pRBC, plan to admit for further anemia workup. 11/10/19 00:[address] Cadet. [] IV [] ADMIT hospitalist [] transfusion Discharge - Discharge Information Problems reviewed: Yes Clinical Impression/Diagnosis: Shortness of breath Condition: Stable Disposition: TRANSFER ACUTE CARE/OTHER HOSP - Admission Yes - Follow up/Referral - Patient Discharge Instructions Additional Instructions: Today you were evaluated for shortness of breath. Your blood labs do not show any anemia, electrolyte abnormalities, or infection. Your chest x-ray does not show any pneumonia or infection. Your shortness of breath is likely related to exertion, and your low oxygen saturation is related to a malfunction in the machine. Please return to [facility] for detox. If you experience worsening shortness of breath, chest pain, nausea, vomiting, fever, or any other new or concerning symptoms, please return to the emergency room. - Post Discharge Activity
--- NOTE | 2019-11-09 20:02 | PDOC ---
Attending Attestation - Resident Resident Name: Shawn Rahman - ED Attending Attestation I have performed the following: I have examined & evaluated the patient, The case was reviewed & discussed with the resident, I agree w/resident's findings & plan, Exceptions are as noted - HPI HPI: 11/09/19 20:00 This 64-year-old male was brought over from [facility] for shortness of breath HPI he has a history of blood transfusions for anemia and states that usually he is short of breath when he becomes anemic. He has been treated for GI bleed leads in the past and states that he was admitted at [facility] has recently for blood transfusion Longstanding history of heroin and cocaine abuse for the past 40 years - Physicial Exam PE: 11/09/19 20:01 Well-nourished well-developed 64-year-old male resting on the gurney stating that he has had increased shortness of breath with exertion Head normocephalic atraumatic Neck no bruits or JVD Lungs clear to auscultation bilaterally, no crackles CVS regular rate rhythm S1-S2 Abdomen is soft nontender Extremities no deformities Skin warm and dry Neuro alert and oriented x3, moving all extremities with purpose, motor strength 5 out of 5 bilaterally - Medical Decision Making 11/09/19 20:02 64-year-old male who is been smoking tobacco for many years and a history of COPD p/w shortness of breath plan rule out GI bleed will get CBC, stool guaiac, chest x-ray, CBC, troponin, chemistry 11/09/19 23:10 11/10/19 00:53 hbg only 8.1 and previous level was 9.9 in July pt has symptomatic anemia and will receive transfusions
[2019-11-09] MEDS ORDERED: ASPIRIN 81 MG CHEWABLE TABLETS PO ONE (20:03)
[2019-11-09 21:15] LABS: BASO % 1.6 % (0-2.0); EOS % 3.6 % (0-4.5); HEMATOCRIT 26.4 % (35.4-49); HEMOGLOBIN 8.1 GM/dL (11.7-16.9); LYMPH % 19.3 % (8-40); MCH 25.2 pg (25.7-33.7); MCHC 30.9 g/dl (32.0-35.9); MEAN CELL VOLUME 81.6 fl (80-96); MEAN PLT VOLUME 8.6 fl (7.5-11.1); MONO % 14.8 % (3.8-10.2); NEUT % 60.7 % (42.8-82.8); PLATELET COUNT 276 K/MM3 (134-434); RBC 3.24 M/mm3 (4.00-5.60); RDW 22.7 % (11.9-15.9); WHITE BLOOD COUNT 5.4 K/mm3 (4.0-10.0)
[2019-11-09 21:43] LABS: ALBUMIN 3.4 g/dl (3.4-5.0); BILIRUBIN,TOTAL 0.3 mg/dL (0.2-1); BLOOD UREA NITROGEN 19.8 mg/dL (7-18); CALCIUM 8.6 mg/dL (8.5-10.1); CREATININE 1.7 mg/dL (0.55-1.3); MAGNESIUM 2.2 mg/dL (1.8-2.4); POTASSIUM 4.2 mmol/L (3.5-5.1); TOT PROT 6.3 g/dl (6.4-8.2)
[2019-11-09 23:38] LABS: ANISOCYTOSIS 2+; OVALOCYTE FEW
--- NOTE | 2019-11-10 00:50 | PDOC ---
*Physical Exam - Vital Signs Last Vital Signs Temp Pulse Resp BP Pulse Ox 98.3 F 74 18 98/58 L 99 11/10/19 00:27 11/10/19 00:27 11/10/19 00:27 11/10/19 00:27 11/10/19 00:27 ED Treatment Course - LABORATORY CBC & Chemistry Diagram: 11/09/19 20:36 11/09/19 20:36 - ADDITIONAL ORDERS Additional order review: Laboratory Results 11/09/19 11/09/19 11/09/19 20:36 20:36 20:36 PTT (Actin FS) 44.9 H Sodium 138 Potassium 4.2 Chloride 104 Carbon Dioxide 26 Anion Gap 7 L BUN 19.8 H Creatinine 1.7 H Est GFR (CKD-EPI)AfAm 48.66 Est GFR (CKD-EPI)NonAf 41.98 Random Glucose 114 H Calcium 8.6 Magnesium 2.2 Total Bilirubin 0.3 AST 15 ALT 17 Alkaline Phosphatase 89 Creatine Kinase 157 Creatine Kinase Index 2.0 CK-MB (CK-2) 3.2 Troponin I 0.02 Total Protein 6.3 L Albumin 3.4 Stool Occult Blood Blood Type O POSITIVE Antibody Screen Negative Crossmatch See Detail 11/09/19 20:27 PTT (Actin FS) Sodium Potassium Chloride Carbon Dioxide Anion Gap BUN Creatinine Est GFR (CKD-EPI)AfAm Est GFR (CKD-EPI)NonAf Random Glucose Calcium Magnesium Total Bilirubin AST ALT Alkaline Phosphatase Creatine Kinase Creatine Kinase Index CK-MB (CK-2) Troponin I Total Protein Albumin Stool Occult Blood Negative Blood Type Antibody Screen Crossmatch 11/09/19 20:36 RBC 3.24 L MCV 81.6 MCHC 30.9 L RDW 22.7 H MPV 8.6 Neutrophils % 60.7 Lymphocytes % 19.3 Monocytes % 14.8 H Eosinophils % 3.6 Basophils % 1.6 - Medications Given in the ED: ED Medications Discontinued Medications Generic Name Dose Route Start Last Admin Trade Name Freq PRN Reason Stop Dose Admin Aspirin 162 mg 11/09/19 20:03 11/09/19 21:08 Asa - PO 11/09/19 20:04 162 mg ONCE ONE Administration Medical Decision Making - Medical Decision Making 11/10/19 00:[address] Josiah Maier is a 64M with PMH HTN, HLD, heroin use disorder, and anemia sent from [facility] for SOB and O2sat to 70s d/t anemia (Hgb 8.1). Consented to transfusion, given 1u pRBC d/t cardiovascular hx. No active bleeding. No evidence of PNA (clear CXR) vs ACS (neg trop) Admitted to m/s Dr Abebe for anemia requiring transfusion. Pending UA, Utox Discharge - Discharge Information Problems reviewed: Yes Clinical Impression/Diagnosis: Shortness of breath Anemia Qualifiers: Anemia type: unspecified type Qualified Code(s): D64.9 - Anemia, unspecified Condition: Stable - Follow up/Referral - Patient Discharge Instructions - Post Discharge Activity
--- NOTE | 2019-11-10 01:01 | PN ---
Teaching Attending Note Name of Resident: Hill Woodson ATTENDING PHYSICIAN STATEMENT I saw and evaluated the patient. I reviewed the resident's note and discussed the case with the resident. I agree with the resident's findings and plan as documented. SUBJECTIVE: Patient is a 64 year old man with PMH of HTN, HLD, Polysubstance abuse (heroin, cocaine), Chronic back pain, CHF with reduced EF, Drug overdose, Seizure, Cardiac defibrillator, Tobacco use and Anemia sent from [facility] for SOB and anemia. Patient reported to [facility] today for heroin detox, last use this morning. Does not report any SOB or any other symptoms at this time. Per EMS report, patient had O2 saturation in the 70s on the pulse oximeter at [facility] , but EMS pulse oximeter showed saturation in high 90s. Transferred to [facility] ER for evaluation for anemia. Says that last time he had SOB was when he needed a transfusion. Denies chest pain, SOB, palpitations, abdominal pain, weakness, dizziness, constipation, diarrhea, nausea, vomiting or bloody stools. No recent travels or sick contacts. Family history of throat cancer, pancreatic cancer, substance abuse disorder and alcoholism. Has been to hospitals in [facility]. Recently had a colonoscopy and EGD at [facility]. OBJECTIVE: Alert Vital Signs Period Temp Pulse Resp BP Sys/Cordero Pulse Ox Last 24 Hr 98.1 F-98.3 F 71-74 16-18 98-120/58-76 97-99 HEENT: No Jaundice, eye redness or discharge, PERRLA, EOMI. Normocephalic, atraumatic. External ears are normal and hearing is grossly intact. No nasal discharge. Neck: Supple, nontender. No palpable adenopathy or thyromegaly. No JVD Chest: Good effort. Clear to auscultation and percussion. Heart: Regular. No S3, rub or murmur Abdomen: Not distended, soft, nontender and no HSM. No rebound or guarding. Normal bowel sounds. Ext: Peripheral pulses intact. No leg edema. Skin: Warm and dry. No petechiae, rash or ecchymosis. Neuro: Alert. Oriented x3. CN 2-12 grossly intact. Sensation grossly intact in all four extremities and DTR are symmetric. Psych: Appropriate mood and affect. Good insight. Home Medications Medication Instructions Recorded Atorvastatin Ca [Lipitor] 40 mg PO HS 05/25/19 Budesonide/Formeterol Fumarate 1 inh PO DAILY PRN 05/25/19 [SYMBICORT 160/4.5mcg -] Carvedilol 6.25 mg PO BID 05/25/19 Diltiazem HCl [Diltiazem ER] 240 mg PO DAILY 05/25/19 Furosemide [Lasix -] 20 mg PO DAILY 05/25/19 Pantoprazole Sodium 40 mg PO DAILY 05/25/19 Rivaroxaban [Xarelto -] 20 mg PO DAILY 05/25/19 Spironolactone 12.5 mg PO DAILY 05/25/19 Amiodarone HCl 100 mg PO DAILY 11/09/19 Ferrous Fumarate 324 mg PO DAILY 11/09/19 Folic Acid 1 mg PO DAILY 11/09/19 Umeclidinium Brm/Vilanterol Tr 1 each IH DAILY 11/09/19 [Anoro Ellipta 62.5-25 Mcg INH] Abnormal Lab Results 11/09/19 11/09/19 11/09/19 20:36 20:36 20:36 RBC 3.24 L Hgb 8.1 L Hct 26.4 L MCH 25.2 L MCHC 30.9 L RDW 22.7 H Monocytes % 14.8 H PTT (Actin FS) 44.9 H Anion Gap 7 L BUN 19.8 H Creatinine 1.7 H Random Glucose 114 H Total Protein 6.3 L Crossmatch 11/09/19 20:36 RBC Hgb Hct MCH MCHC RDW Monocytes % PTT (Actin FS) Anion Gap BUN Creatinine Random Glucose Total Protein Crossmatch See Detail ASSESSMENT AND PLAN: 1. Symptomatic Anemia/?CHF exacerbation - Anemia likely partly due to CKD. Will do basic anemia work up including serial stool guaiacs, reticulocyte count and iron studies. Would benefit from Procrit therapy once iron replete with IV iron. Will get urinalysis and check HbA1c. Will treat CHF with IV lasix, restrict dietary salt intake, get ECHO and daily standing weight. Will contact his PCP/[facility] during the day to find out results of his EGD/ colonoscopy and also why he is on Xarelto. CXR shows cardiomegaly, unfolded aorta, hilar prominence and increased interstitial marking especially in RLL. EKG shows NSR, PACs, intraventricular block, T wave inversion in II, aVL, V3-6 - unchanged from prior EKG. Will continue comprehensive care for all of patient s comorbid conditions. 2. CKD? - Patient has risk factors for CKD. On lasix and aldactone - may be contributing to azotemia. Unclear if he has ever had nephrologic work up. Will get kidney sonogram, urinalysis, PTH, phosphate, hold diuretics, hydrate gently and monitor urine output. Will consult nephrology and avoid nephrotoxic agents such as NSAIDS, aminoglycosides, contrast dyes and certain Alternative medicine products. 3. Tobacco Use Counseled on risks associated with tobacco use. We will provide patient all the necessary assistance to facilitate smoking cessation and prescribe Nicotine patch. 4. Obesity Counseled on the risks associated with obesity. Will provide patient all the necessary assistance, counseling and positive reinforcement to facilitate weight loss. Consult licensing representative. 5. Hypertension - Restart suitable outpatient antihypertensive drugs when clinically appropriate. Revise regimen to ensure [id number] excellent BP control and counseling program leader patient on the injurious effects of uncontrolled hypertension. Nonpharmacologic measures to control hypertension like weight loss , salt restriction and exercise discussed. Importance of adherence to treatment regimen and attainment of normotension emphasized. 6. DVT prophylaxis - On Xarelto! 7. Advance directives - Full code
[2019-11-10 02:54] LABS: URINE APPEARANCE CLEAR; URINE BILIRUBIN NEGATIVE (NEGATIVE); URINE COLOR YELLOW; URINE GLUCOSE (UA) NEGATIVE (NEGATIVE); URINE KETONE NEGATIVE (NEGATIVE); URINE LEUK ESTERASE NEGATIVE (NEGATIVE); URINE NITRITE NEGATIVE (NEGATIVE); URINE PROTEIN NEGATIVE (NEGATIVE)
--- NOTE | 2019-11-10 03:30 | HP ---
CHIEF COMPLAINT: SOB PCP: Theodore Galindo MD [address] [phone] Elevator Erector: Dr. Ben Plaomino HISTORY OF PRESENT ILLNESS: 64 y/o male PMH HTN, HLD, asthma, COPD, chronic back pain, CHF, pacemaker for "abnormal heart rhythm," and polysubstance abuse (smoking cocaine and snorting heroine) c/o SOB for 1 week. He states he is unable to walk more than a block or past 1 flight of stairs w/o feeling SOB. He denies PND, orthopnea, and leg swelling. He denies dyspnea at rest, cramps, palpitations, ELLISON, vision change, and dizziness. He was hospitalized in May 2019 at [facility] for the same concern and he received a blood transfusion. He state the symptoms recurred in Jul 2019 and he visited [facility] where endoscopy and colonoscopy was performed; gastric "tear" found and repaired with "laser." He was bought in today from [facility] for detox 2/2 SOB and finding of desaturation to 70s; 90s when EMS arrived. He denies any current hematemesis and vomiting. Dark stools are present but he states this has occurred since he regularly takes PO iron as home med. Pt states he has snorted heroin for 47 years on/off every few weeks but when he does is daily, 1 bag per day. He also have been smoking cocaine for 30 years. He denies recent illness, sick contacts, and recent travel. He denies NVFD, chills and constipation. ER course was notable for: (1) EKG NSR (2) FOBT NEGATIVE Recent Travel: Denies Family History: Father pharyngeal CA, mother etoh abuse. Multiple family members - substance abuse PAST MEDICAL HISTORY: HTN, HLD, asthma, COPD, chronic back pain, CHF, pacemaker for "abnormal heart rhythm," and polysubstance abuse (smoking cocaine and snorting heroine) PAST SURGICAL HISTORY: Defibrilator placed (15 June 2016), LEFT knee repair Social History: Smoking: Active smoker, considering quitting, 1/2 ppd, 30 years Alcohol: 2 rum/scotch 1 day every week Drugs: Snorted heroin for 47 years, smoke cocaine for 30 years Lives in apartment with ex- and cat, "Waffles" in [facility]. Retired 15 months ago as [employer], primarily did heavy lifting outdoors at [facility] Sexual history: Currently sexually active with women only, inconsistent condom use, never dx with STI Allergies: lisinopril Allergy (Verified 11/09/19 16:44) angioedema INTUBATED FOR REACTION IN PAST HOME MEDICATIONS: Medication Instructions Recorded Atorvastatin Ca [Lipitor] 40 mg PO HS 05/25/19 Budesonide/Formeterol Fumarate 1 inh PO DAILY PRN 05/25/19 [SYMBICORT 160/4.5mcg -] Carvedilol 6.25 mg PO BID 05/25/19 Diltiazem HCl [Diltiazem ER] 240 mg PO DAILY 05/25/19 Furosemide [Lasix -] 20 mg PO DAILY 05/25/19 Pantoprazole Sodium 40 mg PO DAILY 05/25/19 Rivaroxaban [Xarelto -] 20 mg PO DAILY 05/25/19 Spironolactone 12.5 mg PO DAILY 05/25/19 Amiodarone HCl 100 mg PO DAILY 11/09/19 Ferrous Fumarate 324 mg PO DAILY 11/09/19 Folic Acid 1 mg PO DAILY 11/09/19 Umeclidinium Brm/Vilanterol Tr 1 each IH DAILY 11/09/19 [Anoro Ellipta 62.5-25 Mcg INH] REVIEW OF SYSTEMS CONSTITUTIONAL: Absent: fever, chills, diaphoresis, generalized weakness, malaise, loss of appetite, weight change HEENT: Absent: rhinorrhea, nasal congestion, throat pain, throat swelling, difficulty swallowing, mouth swelling, ear pain, eye pain, visual changes CARDIOVASCULAR: Absent: chest pain, syncope, palpitations, irregular heart rate, lightheadedness , peripheral edema RESPIRATORY: Absent: cough, shortness of breath, dyspnea with exertion, orthopnea, wheezing, stridor, hemoptysis GASTROINTESTINAL: Absent: abdominal pain, abdominal distension, nausea, vomiting, diarrhea, constipation, melena, hematochezia GENITOURINARY: Absent: dysuria, frequency, urgency, hesitancy, hematuria, flank pain, genital pain MUSCULOSKELETAL: Absent: myalgia, arthralgia, joint swelling, back pain, neck pain SKIN: Absent: rash, itching, pallor HEMATOLOGIC/IMMUNOLOGIC: Absent: easy bleeding, easy bruising, lymphadenopathy, frequent infections ENDOCRINE: Absent: unexplained weight gain, unexplained weight loss, heat intolerance, cold intolerance NEUROLOGIC: Absent: headache, focal weakness or paresthesias, dizziness, unsteady gait, seizure, mental status changes, bladder or bowel incontinence PSYCHIATRIC: Absent: anxiety, depression, suicidal or homicidal ideation, hallucinations. PHYSICAL EXAMINATION Vital Signs - 24 hr 11/09/19 11/10/19 11/10/19 19:33 00:01 00:27 Temperature 98.1 F 98.3 F Pulse Rate 71 Pulse Rate [ 74 Apical] Respiratory 16 18 Rate Blood Pressure 120/76 Blood Pressure 98/58 L [Right Arm] O2 Sat by Pulse 99 97 99 Oximetry (%) 11/10/19 03:18 Temperature 98.5 F Pulse Rate 72 Pulse Rate [ Apical] Respiratory 18 Rate Blood Pressure 108/66 Blood Pressure [Right Arm] O2 Sat by Pulse 99 Oximetry (%) GENERAL: AOx3, in no acute distress. HEAD: NCAT EYES: GIULIANA, EOMI, conjunctiva clear. ENT: Ears normal, nares patent, oropharynx clear without exudates. Moist mucous membranes. NECK: Normal range of motion, supple without lymphadenopathy, JVD, or masses. LUNGS: CTAB. No wheezes, and no crackles. No accessory muscle use. HEART: RRR s1 s2 ABDOMEN: Soft, BS present in all 4 quadrants, non-distended, no JVD, MUSCULOSKELETAL: No bony deformities or tenderness. No CVA tenderness. UPPER EXTREMITIES: 2+ pulses, warm, well-perfused. No cyanosis. No clubbing. No peripheral edema. LOWER EXTREMITIES: 2+ pulses, warm, well-perfused. No calf tenderness. No peripheral edema. NEUROLOGICAL: No focal deficits. Cranial nerves II-XII intact. Normal speech. Gait not appreciated. PSYCHIATRIC: Cooperative. Good eye contact. Appropriate mood and affect. SKIN: Warm, dry, normal turgor, no rashes or lesions noted, normal capillary refill. Laboratory Results - last 24 hr 11/09/19 11/09/19 11/09/19 20:27 20:36 20:36 WBC 5.4 RBC 3.24 L Hgb 8.1 L Hct 26.4 L MCV 81.6 MCH 25.2 L MCHC 30.9 L RDW 22.7 H Plt Count 276 MPV 8.6 Absolute Neuts (auto) 3.3 Neutrophils % 60.7 Lymphocytes % 19.3 Monocytes % 14.8 H Eosinophils % 3.6 Basophils % 1.6 Nucleated RBC % 0 Hypochromia 1+ Anisocytosis 2+ Ovalocytes Few PTT (Actin FS) Sodium 138 Potassium 4.2 Chloride 104 Carbon Dioxide 26 Anion Gap 7 L Est GFR (CKD-EPI)AfAm 48.66 Est GFR (CKD-EPI)NonAf 41.98 Random Glucose 114 H Calcium 8.6 Magnesium 2.2 Total Bilirubin 0.3 AST 15 ALT 17 Alkaline Phosphatase 89 Creatine Kinase 157 Creatine Kinase Index 2.0 CK-MB (CK-2) 3.2 Troponin I 0.02 Total Protein 6.3 L Albumin 3.4 Urine Color Urine Appearance Urine pH Ur Specific [place] Urine Protein Urine Glucose (UA) Urine Ketones Urine Blood Urine Nitrite Urine Bilirubin Urine Urobilinogen Ur Leukocyte Esterase Stool Occult Blood Negative Blood Type Antibody Screen Crossmatch 11/10/19 02:24 WBC RBC Hgb Hct MCV MCH MCHC RDW Plt Count MPV Absolute Neuts (auto) Neutrophils % Lymphocytes % Monocytes % Eosinophils % Basophils % Nucleated RBC % Hypochromia Anisocytosis Ovalocytes PTT (Actin FS) Sodium Potassium Chloride Carbon Dioxide Anion Gap BUN Creatinine Est GFR (CKD-EPI)AfAm Est GFR (CKD-EPI)NonAf Random Glucose Calcium Magnesium Total Bilirubin AST ALT Alkaline Phosphatase Creatine Kinase Creatine Kinase Index CK-MB (CK-2) Troponin I Total Protein Albumin Urine Color Yellow Urine Appearance Clear Urine pH 6.0 D Ur Specific [place] 1.018 Urine Protein Negative Urine Glucose (UA) Negative Urine Ketones Negative Urine Blood Negative Urine Nitrite Negative Urine Bilirubin Negative Urine Urobilinogen 1.0 Ur Leukocyte Esterase Negative Stool Occult Blood Blood Type Antibody Screen Crossmatch ASSESSMENT/PLAN: 64 y/o male PMH HTN, HLD, asthma, COPD, chronic back pain, CHF, pacemaker for "abnormal heart rhythm," and polysubstance abuse (smoking cocaine and snorting heroine) c/o SOB for 1 week. Several month # Normocytic anemia - Serum Fe, TIBC, retic, ferritin - Get records from [facility] regarding endoscopy/colonoscopy - Echo - Consider Venofer # CATHY - BUN/Cr 19.8/1.7, in Jul 2019 22/1.5, May 2019 13.5/1.2 - UA - Urine protein/cr - Phosphate - PTH - Renal US # Substance abuse - Educated pt on health benefits of drug cessation - Pt will consider stopping bc he has a grand-daughter but admits his ability to balance substance abuse and normal lifestyle encourages him to continue - Refer to social work - Consult transitional living specialist # HTN - Cont. curent home regimen # HLD - Cont. curent home regimen #F/E/N - PO intake - Cont. to monitor - Low sodium diet # DVT prophylaxis - On rivaroxaban # Disposition - Admit to med/surg Hill Woodson MD ATTENDING PHYSICIAN STATEMENT I saw and evaluated the patient. I reviewed the resident's note and discussed the case with the resident. I agree with the resident's findings and plan as documented. SUBJECTIVE: OBJECTIVE: ASSESSMENT AND PLAN:
[2019-11-10] MEDS ORDERED: BUDESONIDE/FORMETEROL FUMARATE 160/4.5 mcg INHALER IH PRN (03:32)
[2019-11-10 03:44] LABS: METHADONE, UR NEGATIVE ng/ml (CUTOFF=300); PHENCYCLIDINE,URINE NEGATIVE ng/ml (CUTOFF=25); URINE AMPHETAMINES NEGATIVE ng/ml (CUTOFF=500); URINE BARBITURATES NEGATIVE ng/ml (CUTOFF=200); URINE BENZODIAZEPINES NEGATIVE ng/ml (CUTOFF=200)
[2019-11-10 03:47] LABS: COCAINE, UR POSITIVE ng/ml (CUTOFF=300)
[2019-11-10 03:48] LABS: OPIATES, URI POSITIVE ng/ml (CUTOFF=300)
[2019-11-10] MEDS ORDERED: HEPARIN NA (PORCINE) 5,000 UNITS/ML 1ML VIAL SQ SCH (06:00)
[2019-11-10 08:52] VITALS: BMI 29.7
--- NOTE | 2019-11-10 09:06 | EKG ---
Test Reason : Blood Pressure : / mmHG Vent. Rate : 067 BPM Atrial Rate : 067 BPM P-R Int : 188 ms QRS Dur : 128 ms QT Int : 442 ms P-R-T Axes : 014 -35 169 degrees QTc Int : 467 ms SINUS RHYTHM WITH PREMATURE ATRIAL COMPLEXES LEFT AXIS DEVIATION NON-SPECIFIC INTRA-VENTRICULAR CONDUCTION BLOCK T WAVE ABNORMALITY, CONSIDER ANTEROLATERAL ISCHEMIA ABNORMAL ECG WHEN COMPARED WITH ECG OF 25-MAY-2019 21:22, PREMATURE ATRIAL COMPLEXES ARE NOW PRESENT NONSPECIFIC T WAVE ABNORMALITY, IMPROVED IN INFERIOR LEADS Confirmed by Jose R Junior MD ([id number]) on 11/10/2019 9:06:40 AM Referred By: Confirmed By:Jose R Junior MD
[2019-11-10] MEDS: AMIODARONE HCL 200 MG TABLET (FP) PO SCH (09:11)
[2019-11-10] MEDS: FOLIC ACID 1 MG TABLET (FP) PO SCH (09:12)
[2019-11-10] MEDS: CARVEDILOL 6.25 MG TABLET (FP) PO SCH ×2 (09:12→22:01)
[2019-11-10] MEDS: PANTOPRAZOLE 40 MG TABLET (FP) PO SCH (09:13)
[2019-11-10] MEDS ORDERED: SPIRONOLACTONE 25 MG TABLET (FP) PO SCH (10:00)
[2019-11-10] MEDS ORDERED: UMECLIDINIUM/VILANTEROL (ANORO) 62.5/25 MCG INHALER IH SCH (10:00)
[2019-11-10 10:08] LABS: PH,URINE 6.5 (5.0-8.0); URINE APPEARANCE CLEAR; URINE BILIRUBIN NEGATIVE (NEGATIVE); URINE COLOR YELLOW; URINE GLUCOSE (UA) NEGATIVE (NEGATIVE); URINE KETONE NEGATIVE (NEGATIVE); URINE LEUK ESTERASE NEGATIVE (NEGATIVE); URINE NITRITE NEGATIVE (NEGATIVE); URINE PROTEIN NEGATIVE (NEGATIVE)
--- NOTE | 2019-11-10 11:10 | ECHO ---
Version: 1 Name: KACI JOSEPH Exam: Adult Echocardiogram Study Date: 11/10/2019, 9:42 AM Age: 64 Years MMode/2D Measurements & Calculations IVSd: 1.01 cm LVIDs: 5.3 cm LVIDd: 7.1 cm LVPWd: 1.13 cm LAV (MOD-bp): 108.0 ml LVOT diam: 1.99 cm Ao root diam: 3.7 cm LA dimension: 4.0 cm Doppler Measurements & Calculations MV E max john: 79.5 cm/sec Med E/e': 18.7 MV A max john: 66.0 cm/sec Med Peak E' John: 4.2 cm/sec MV E/A: 1.21 Lat E/e': 8.4 Lat Peak E' John: 9.5 cm/sec MR max P.4 mmHg Ao max P.4 mmHg Ao V2 max: 135.7 cm/sec AI P1/2t: 1353 msec TR max john: 296.6 cm/sec TR max P.3 mmHg Procedure A complete two-dimensional transthoracic echocardiogram was performed (2D, M-mode, Doppler and color flow Doppler). The patient was in normal sinus rhythm during the exam. Left Ventricle The left ventricle is normal in size. Left ventricular systolic function is moderately reduced. Ejec tion Fraction = 35%. Septal motion is consistent with conduction abnormality. There is posterior wall malick nesis. There is inferior wall akinesis. There is mild global hypokinesis of the left ventricle. Right Ventricle The right ventricle is normal in size and function. There is a pacemaker lead in the right ventricle . Atria Normal left and right atrial size and function. Mitral Valve The mitral valve is normal in structure and function. There is trace to mild mitral regurgitation. Tricuspid Valve The tricuspid valve is normal in structure and function. Right ventricular systolic pressure is elev ated at 45 mmhg. There is moderate pulmonary hypertension. There is mild tricuspid regurgitation. Aortic Valve There is mild to moderate aortic valve thickening. Trace aortic regurgitation. Pulmonic Valve The pulmonic valve is not well visualized. Great Vessels The aortic root is normal size. Pericardium/Pleura There is no pericardial effusion. There is no pleural effusion. Summary Statements The left ventricle is normal in size. Septal motion is consistent with conduction abnormality. There is posterior wall akinesis. There is inferior wall akinesis. There is mild global hypokinesis of the left ventricle. Left ventricular systolic function is moderately reduced. Ejection Fraction = 35%. The right ventricle is normal in size and function. There is a pacemaker lead in the right ventricle. There is trace to mild mitral regurgitation. There is mild tricuspid regurgitation. There is moderate pulmonary hypertension. Right ventricular systolic pressure is elevated at 45 mmhg. There is mild to moderate aortic valve thickening. Trace aortic regurgitation. MD Jose R Junior 11/10/2019, 11:09 AM Ordering Physician: Hill Woodson Performed By: Mary Mary
[2019-11-10] MEDS ORDERED: ACETAMINOPHEN 325 MG TABLET (FP) PO PRN (14:12)
--- NOTE | 2019-11-10 17:06 | PN ---
Teaching Attending Note Name of Resident: Dilip Lomax ATTENDING PHYSICIAN STATEMENT I saw and evaluated the patient. I reviewed the resident's note and discussed the case with the resident. I agree with the resident's findings and plan as documented with exceptions below. SUBJECTIVE: Patient seen and examined. overall unchanged. Reports exertional dyspnea, prior similar episode when noted anemic requiring blood transfusion. Denies any chest pain, orthopnea, PND, abdominal or urinary symptoms. Dark stools since on iron supplementation, no gross blood or abdominal pain. OBJECTIVE: Vital Signs Period Temp Pulse Resp BP Sys/Cordero Pulse Ox Last 24 Hr 98.1 F-98.9 F 65-75 16-18 98-144/58-95 96-99 Intake & Output 11/07/19 11/08/19 11/09/19 11/10/19 23:59 23:59 23:59 23:59 Intake Total 400 Balance 400 Weight 190 lb 184 lb 3.2 oz General: ambulating in room, no acute distress neck: soft, supple, no JVD Chest: CTAb, no rales or wheezing Abdomen:Soft, obese, NT throughout, pos bowel sounds Extremities: no pedal edema Home Medications Medication Instructions Recorded Atorvastatin Ca [Lipitor] 40 mg PO HS 05/25/19 Budesonide/Formeterol Fumarate 1 inh PO DAILY PRN 05/25/19 [SYMBICORT 160/4.5mcg -] Carvedilol 6.25 mg PO BID 05/25/19 Diltiazem HCl [Diltiazem ER] 240 mg PO DAILY 05/25/19 Furosemide [Lasix -] 20 mg PO DAILY 05/25/19 Pantoprazole Sodium 40 mg PO DAILY 05/25/19 Rivaroxaban [Xarelto -] 20 mg PO DAILY 05/25/19 Spironolactone 12.5 mg PO DAILY 05/25/19 Amiodarone HCl 100 mg PO DAILY 11/09/19 Ferrous Fumarate 324 mg PO DAILY 11/09/19 Umeclidinium Brm/Vilanterol Tr 1 each IH DAILY 11/09/19 [Anoro Ellipta 62.5-25 Mcg INH] Diltiazem Cd [Cardizem Cd -] 240 mg PO DAILY 11/10/19 Active Medications Acetaminophen (Tylenol -) 650 mg PO Q6H PRN PRN Reason: Fever Last Admin: 11/10/19 16:03 Dose: 650 mg Amiodarone HCl (Cordarone -) 100 mg PO DAILY [facility] Last Admin: 11/10/19 09:11 Dose: 100 mg Atorvastatin Calcium (Lipitor -) 40 mg PO [facility] Budesonide/Formoterol Fumarate (Symbicort 160/4.5mcg -) 1 puff IH DAILY PRN PRN Reason: ASTHMA Carvedilol (Coreg -) 6.25 mg PO BID [facility] Last Admin: 11/10/19 09:12 Dose: 6.25 mg Diltiazem HCl (Cardizem Cd -) 240 mg PO DAILY [facility] Last Admin: 11/10/19 09:09 Dose: 240 mg Folic Acid (Folic Acid -) 1 mg PO DAILY [facility] Last Admin: 11/10/19 09:12 Dose: 1 mg Pantoprazole Sodium (Protonix -) 40 mg PO DAILY [facility] Last Admin: 11/10/19 09:13 Dose: 40 mg Rivaroxaban (Xarelto) 20 mg PO DAILY@1800 [facility] Laboratory Results - last 24 hr 11/09/19 11/09/19 11/09/19 20:27 20:36 20:36 WBC 5.4 RBC 3.24 L Hgb 8.1 L Hct 26.4 L MCV 81.6 MCH 25.2 L MCHC 30.9 L RDW 22.7 H Plt Count 276 MPV 8.6 Absolute Neuts (auto) 3.3 Neutrophils % 60.7 Lymphocytes % 19.3 Monocytes % 14.8 H Eosinophils % 3.6 Basophils % 1.6 Nucleated RBC % 0 Hypochromia 1+ Anisocytosis 2+ Ovalocytes Few PTT (Actin FS) Sodium 138 Potassium 4.2 Chloride 104 Carbon Dioxide 26 Anion Gap 7 L BUN 19.8 H Creatinine 1.7 H Est GFR (CKD-EPI)AfAm 48.66 Est GFR (CKD-EPI)NonAf 41.98 Random Glucose 114 H Calcium 8.6 Magnesium 2.2 Total Bilirubin 0.3 AST 15 ALT 17 Alkaline Phosphatase 89 Creatine Kinase 157 Creatine Kinase Index 2.0 CK-MB (CK-2) 3.2 Troponin I 0.02 Total Protein 6.3 L Albumin 3.4 Urine Color Urine Appearance Urine pH Ur Specific [place] Urine Protein Urine Glucose (UA) Urine Ketones Urine Blood Urine Nitrite Urine Bilirubin Urine Urobilinogen Ur Leukocyte Esterase Ur Random Creatinine U Random Total Protein Ur Random Sodium Ur Random Potassium Ur Random Chloride Ur Random Urea Nitrogn Urine Creatinine Protein/Creatinin Ratio Stool Occult Blood Negative Opiates Screen Methadone Screen Barbiturate Screen Phencyclidine Screen Ur Amphetamines Screen MDMA (Ecstasy) Screen Benzodiazepines Screen Cocaine Screen U Marijuana (THC) Screen Blood Type Antibody Screen Crossmatch 11/09/19 11/09/19 11/10/19 20:36 20:36 00:46 WBC RBC Hgb Hct MCV MCH MCHC RDW Plt Count MPV Absolute Neuts (auto) Neutrophils % Lymphocytes % Monocytes % Eosinophils % Basophils % Nucleated RBC % Hypochromia Anisocytosis Ovalocytes PTT (Actin FS) 44.9 H Sodium Potassium Chloride Carbon Dioxide Anion Gap BUN Creatinine Est GFR (CKD-EPI)AfAm Est GFR (CKD-EPI)NonAf Random Glucose Calcium Magnesium Total Bilirubin AST ALT Alkaline Phosphatase Creatine Kinase Creatine Kinase Index CK-MB (CK-2) Troponin I Total Protein Albumin Urine Color Urine Appearance Urine pH Ur Specific [place] Urine Protein Urine Glucose (UA) Urine Ketones Urine Blood Urine Nitrite Urine Bilirubin Urine Urobilinogen Ur Leukocyte Esterase Ur Random Creatinine U Random Total Protein Ur Random Sodium Ur Random Potassium Ur Random Chloride Ur Random Urea Nitrogn Urine Creatinine Protein/Creatinin Ratio Stool Occult Blood Opiates Screen Methadone Screen Barbiturate Screen Phencyclidine Screen Ur Amphetamines Screen MDMA (Ecstasy) Screen Benzodiazepines Screen Cocaine Screen U Marijuana (THC) Screen Blood Type O POSITIVE O POSITIVE Antibody Screen Negative Negative Crossmatch See Detail 11/10/19 11/10/19 11/10/19 02:24 02:24 05:20 WBC RBC Hgb Hct MCV MCH MCHC RDW Plt Count MPV Absolute Neuts (auto) Neutrophils % Lymphocytes % Monocytes % Eosinophils % Basophils % Nucleated RBC % Hypochromia Anisocytosis Ovalocytes PTT (Actin FS) Sodium Potassium Chloride Carbon Dioxide Anion Gap BUN Creatinine Est GFR (CKD-EPI)AfAm Est GFR (CKD-EPI)NonAf Random Glucose Calcium Magnesium Total Bilirubin AST ALT Alkaline Phosphatase Creatine Kinase Creatine Kinase Index CK-MB (CK-2) Troponin I Total Protein Albumin Urine Color Yellow Urine Appearance Clear Urine pH 6.0 D Ur Specific [place] 1.018 Urine Protein Negative Urine Glucose (UA) Negative Urine Ketones Negative Urine Blood Negative Urine Nitrite Negative Urine Bilirubin Negative Urine Urobilinogen 1.0 Ur Leukocyte Esterase Negative Ur Random Creatinine 82.0 U Random Total Protein Ur Random Sodium Ur Random Potassium Ur Random Chloride Ur Random Urea Nitrogn Urine Creatinine Protein/Creatinin Ratio Stool Occult Blood Opiates Screen Positive A* Methadone Screen Negative Barbiturate Screen Negative Phencyclidine Screen Negative Ur Amphetamines Screen Negative MDMA (Ecstasy) Screen Negative Benzodiazepines Screen Negative Cocaine Screen Positive A* U Marijuana (THC) Screen Negative Blood Type Antibody Screen Crossmatch 11/10/19 11/10/19 11/10/19 05:20 05:20 05:20 WBC RBC Hgb Hct MCV MCH MCHC RDW Plt Count MPV Absolute Neuts (auto) Neutrophils % Lymphocytes % Monocytes % Eosinophils % Basophils % Nucleated RBC % Hypochromia Anisocytosis Ovalocytes PTT (Actin FS) Sodium Potassium Chloride Carbon Dioxide Anion Gap BUN Creatinine Est GFR (CKD-EPI)AfAm Est GFR (CKD-EPI)NonAf Random Glucose Calcium Magnesium Total Bilirubin AST ALT Alkaline Phosphatase Creatine Kinase Creatine Kinase Index CK-MB (CK-2) Troponin I Total Protein Albumin Urine Color Yellow Urine Appearance Clear Urine pH 6.5 Ur Specific [place] 1.014 Urine Protein Negative Urine Glucose (UA) Negative Urine Ketones Negative Urine Blood Negative Urine Nitrite Negative Urine Bilirubin Negative Urine Urobilinogen 1.0 Ur Leukocyte Esterase Negative Ur Random Creatinine U Random Total Protein 16.8 H Ur Random Sodium 135 Ur Random Potassium 26.0 Ur Random Chloride 144 Ur Random Urea Nitrogn Urine Creatinine 84.0 Protein/Creatinin Ratio 0.2 Stool Occult Blood Opiates Screen Methadone Screen Barbiturate Screen Phencyclidine Screen Ur Amphetamines Screen MDMA (Ecstasy) Screen Benzodiazepines Screen Cocaine Screen U Marijuana (THC) Screen Blood Type Antibody Screen Crossmatch 11/10/19 05:20 WBC RBC Hgb Hct MCV MCH MCHC RDW Plt Count MPV Absolute Neuts (auto) Neutrophils % Lymphocytes % Monocytes % Eosinophils % Basophils % Nucleated RBC % Hypochromia Anisocytosis Ovalocytes PTT (Actin FS) Sodium Potassium Chloride Carbon Dioxide Anion Gap BUN Creatinine Est GFR (CKD-EPI)AfAm Est GFR (CKD-EPI)NonAf Random Glucose Calcium Magnesium Total Bilirubin AST ALT Alkaline Phosphatase Creatine Kinase Creatine Kinase Index CK-MB (CK-2) Troponin I Total Protein Albumin Urine Color Urine Appearance Urine pH Ur Specific [place] Urine Protein Urine Glucose (UA) Urine Ketones Urine Blood Urine Nitrite Urine Bilirubin Urine Urobilinogen Ur Leukocyte Esterase Ur Random Creatinine U Random Total Protein Ur Random Sodium Ur Random Potassium Ur Random Chloride Ur Random Urea Nitrogn 463 Urine Creatinine Protein/Creatinin Ratio Stool Occult Blood Opiates Screen Methadone Screen Barbiturate Screen Phencyclidine Screen Ur Amphetamines Screen MDMA (Ecstasy) Screen Benzodiazepines Screen Cocaine Screen U Marijuana (THC) Screen Blood Type Antibody Screen Crossmatch Renal US results noted ASSESSMENT AND PLAN: 64 yom with PMhx of Cardiomypathy (EF 35%), s/p AICD, systolic heart failure, Afib on xarelto, HTN, HLD, asthma, COPD, chronic back pain, polysubstance abuse (cocaine/Heroine), reported recent hospital stay x 2 for anemia, requiring PRBC , s/p EGD/colonscopy in with small intestinal angiodysplasia/polyps, sent from [facility] with exertional dyspnea, found with anemia. -Exertional dyspnea, suspect symptomatic anemia -Cardiomyopathy (EF 35%) s/p AICD -Chronic systolic heart failure -CATHY, ?prerenal from poor oral intake/ongoing drug use, vs CKD (baseline Cr around 1.3) from poor cardiac output -Atrial fibrillation on xarelto -Recurrent anemia requiring admission x 2 this year/PRBC, s/p EGD/colonscopy in with small intestinal angiodysplasia/polyps -HTN -HLD -Asthma -COPD -Chronic back pain -Polysubstance abuse (cocaine/heroine) Plan: s/p 1 unit PRBC, follow up CBC, continue PO iron and PPI. No gross evidence of bleed or hemodynamic instability, FOBT neg, repeat. GI input based on h/h and clinical course. Reported recent EGD/colonscopy with small intestinal angiodysplasia/polyps, retrieve official report. Continue xarelto with close monitoring for now. Clinical exam not consistent with CHF exacerbation, unlikely resulting in current symptoms. Cr rising, hold lasix/aldactone for now. Renal US noted. Monitor volume status closely. If symptoms fail to improve with transfusion, may benefit from holter to assess for intermittent episodes of tachycardia and cardiology input. Continue amiodarone/Diltiazem/Coreg. Discuss with outpatient leadite worker. Detox consult. Drug cessation counseling. DVTPPX on xarelto Dispo dc to [facility] in 48 hours if h/h stable and symptoms improved. Additional input including GI and cardiology based on clinical course Discussed with patient.
[2019-11-10] MEDS: RIVAROXABAN 20 MG TABLET PO SCH (17:22)
--- NOTE | 2019-11-10 17:42 | PN ---
Physical Exam: SUBJECTIVE: Patient seen and examined in the morning. No acute events overnight. Patient complains of slight shortness of breath. No chest pain, no abdominal pain, no nausea, vomiting, diarrhea. OBJECTIVE: Vital Signs Period Temp Pulse Resp BP Sys/Cordero Pulse Ox Last 24 Hr 98.1 F-98.9 F 65-75 16-18 98-144/58-95 96-99 GENERAL: The patient is awake, alert, and fully oriented, in no acute distress. HEAD: Normal with no signs of trauma. EYES: PERRL, extraocular movements intact, sclera anicteric, conjunctiva clear. No ptosis. ENT: Ears normal, nares patent, oropharynx clear without exudates, moist mucous membranes. NECK: Trachea midline, full range of motion, supple. LUNGS: Breath sounds equal, clear to auscultation bilaterally, no wheezes, no crackles, no accessory muscle use. HEART: Regular rate and rhythm, S1, S2 without murmur, rub or gallop. ABDOMEN: Soft, nontender, nondistended, normoactive bowel sounds, no guarding, no rebound, no hepatosplenomegaly, no masses. EXTREMITIES: 2+ pulses, warm, well-perfused, no edema. NEUROLOGICAL: Cranial nerves II through XII grossly intact. Normal speech, gait not observed. PSYCH: Normal mood, normal affect. SKIN: Warm, dry, normal turgor, no rashes or lesions noted Laboratory Results - last 24 hr 11/09/19 11/09/19 11/09/19 20:27 20:36 20:36 WBC 5.4 RBC 3.24 L Hgb 8.1 L Hct 26.4 L MCV 81.6 MCH 25.2 L MCHC 30.9 L RDW 22.7 H Plt Count 276 MPV 8.6 Absolute Neuts (auto) 3.3 Neutrophils % 60.7 Lymphocytes % 19.3 Monocytes % 14.8 H Eosinophils % 3.6 Basophils % 1.6 Nucleated RBC % 0 Hypochromia 1+ Anisocytosis 2+ Ovalocytes Few PTT (Actin FS) Sodium 138 Potassium 4.2 Chloride 104 Carbon Dioxide 26 Anion Gap 7 L BUN 19.8 H Creatinine 1.7 H Est GFR (CKD-EPI)AfAm 48.66 Est GFR (CKD-EPI)NonAf 41.98 Random Glucose 114 H Calcium 8.6 Magnesium 2.2 Total Bilirubin 0.3 AST 15 ALT 17 Alkaline Phosphatase 89 Creatine Kinase 157 Creatine Kinase Index 2.0 CK-MB (CK-2) 3.2 Troponin I 0.02 Total Protein 6.3 L Albumin 3.4 Urine Color Urine Appearance Urine pH Ur Specific [place] Urine Protein Urine Glucose (UA) Urine Ketones Urine Blood Urine Nitrite Urine Bilirubin Urine Urobilinogen Ur Leukocyte Esterase Ur Random Creatinine U Random Total Protein Ur Random Sodium Ur Random Potassium Ur Random Chloride Ur Random Urea Nitrogn Urine Creatinine Protein/Creatinin Ratio Stool Occult Blood Negative Opiates Screen Methadone Screen Barbiturate Screen Phencyclidine Screen Ur Amphetamines Screen MDMA (Ecstasy) Screen Benzodiazepines Screen Cocaine Screen U Marijuana (THC) Screen Blood Type Antibody Screen Crossmatch 11/09/19 11/09/19 11/10/19 20:36 20:36 00:46 WBC RBC Hgb Hct MCV MCH MCHC RDW Plt Count MPV Absolute Neuts (auto) Neutrophils % Lymphocytes % Monocytes % Eosinophils % Basophils % Nucleated RBC % Hypochromia Anisocytosis Ovalocytes PTT (Actin FS) 44.9 H Sodium Potassium Chloride Carbon Dioxide Anion Gap BUN Creatinine Est GFR (CKD-EPI)AfAm Est GFR (CKD-EPI)NonAf Random Glucose Calcium Magnesium Total Bilirubin AST ALT Alkaline Phosphatase Creatine Kinase Creatine Kinase Index CK-MB (CK-2) Troponin I Total Protein Albumin Urine Color Urine Appearance Urine pH Ur Specific [place] Urine Protein Urine Glucose (UA) Urine Ketones Urine Blood Urine Nitrite Urine Bilirubin Urine Urobilinogen Ur Leukocyte Esterase Ur Random Creatinine U Random Total Protein Ur Random Sodium Ur Random Potassium Ur Random Chloride Ur Random Urea Nitrogn Urine Creatinine Protein/Creatinin Ratio Stool Occult Blood Opiates Screen Methadone Screen Barbiturate Screen Phencyclidine Screen Ur Amphetamines Screen MDMA (Ecstasy) Screen Benzodiazepines Screen Cocaine Screen U Marijuana (THC) Screen Blood Type O POSITIVE O POSITIVE Antibody Screen Negative Negative Crossmatch See Detail 11/10/19 11/10/19 11/10/19 02:24 02:24 05:20 WBC RBC Hgb Hct MCV MCH MCHC RDW Plt Count MPV Absolute Neuts (auto) Neutrophils % Lymphocytes % Monocytes % Eosinophils % Basophils % Nucleated RBC % Hypochromia Anisocytosis Ovalocytes PTT (Actin FS) Sodium Potassium Chloride Carbon Dioxide Anion Gap BUN Creatinine Est GFR (CKD-EPI)AfAm Est GFR (CKD-EPI)NonAf Random Glucose Calcium Magnesium Total Bilirubin AST ALT Alkaline Phosphatase Creatine Kinase Creatine Kinase Index CK-MB (CK-2) Troponin I Total Protein Albumin Urine Color Yellow Urine Appearance Clear Urine pH 6.0 D Ur Specific [place] 1.018 Urine Protein Negative Urine Glucose (UA) Negative Urine Ketones Negative Urine Blood Negative Urine Nitrite Negative Urine Bilirubin Negative Urine Urobilinogen 1.0 Ur Leukocyte Esterase Negative Ur Random Creatinine 82.0 U Random Total Protein Ur Random Sodium Ur Random Potassium Ur Random Chloride Ur Random Urea Nitrogn Urine Creatinine Protein/Creatinin Ratio Stool Occult Blood Opiates Screen Positive A* Methadone Screen Negative Barbiturate Screen Negative Phencyclidine Screen Negative Ur Amphetamines Screen Negative MDMA (Ecstasy) Screen Negative Benzodiazepines Screen Negative Cocaine Screen Positive A* U Marijuana (THC) Screen Negative Blood Type Antibody Screen Crossmatch 11/10/19 11/10/19 11/10/19 05:20 05:20 05:20 WBC RBC Hgb Hct MCV MCH MCHC RDW Plt Count MPV Absolute Neuts (auto) Neutrophils % Lymphocytes % Monocytes % Eosinophils % Basophils % Nucleated RBC % Hypochromia Anisocytosis Ovalocytes PTT (Actin FS) Sodium Potassium Chloride Carbon Dioxide Anion Gap BUN Creatinine Est GFR (CKD-EPI)AfAm Est GFR (CKD-EPI)NonAf Random Glucose Calcium Magnesium Total Bilirubin AST ALT Alkaline Phosphatase Creatine Kinase Creatine Kinase Index CK-MB (CK-2) Troponin I Total Protein Albumin Urine Color Yellow Urine Appearance Clear Urine pH 6.5 Ur Specific [place] 1.014 Urine Protein Negative Urine Glucose (UA) Negative Urine Ketones Negative Urine Blood Negative Urine Nitrite Negative Urine Bilirubin Negative Urine Urobilinogen 1.0 Ur Leukocyte Esterase Negative Ur Random Creatinine U Random Total Protein 16.8 H Ur Random Sodium 135 Ur Random Potassium 26.0 Ur Random Chloride 144 Ur Random Urea Nitrogn Urine Creatinine 84.0 Protein/Creatinin Ratio 0.2 Stool Occult Blood Opiates Screen Methadone Screen Barbiturate Screen Phencyclidine Screen Ur Amphetamines Screen MDMA (Ecstasy) Screen Benzodiazepines Screen Cocaine Screen U Marijuana (THC) Screen Blood Type Antibody Screen Crossmatch 11/10/19 05:20 WBC RBC Hgb Hct MCV MCH MCHC RDW Plt Count MPV Absolute Neuts (auto) Neutrophils % Lymphocytes % Monocytes % Eosinophils % Basophils % Nucleated RBC % Hypochromia Anisocytosis Ovalocytes PTT (Actin FS) Sodium Potassium Chloride Carbon Dioxide Anion Gap BUN Creatinine Est GFR (CKD-EPI)AfAm Est GFR (CKD-EPI)NonAf Random Glucose Calcium Magnesium Total Bilirubin AST ALT Alkaline Phosphatase Creatine Kinase Creatine Kinase Index CK-MB (CK-2) Troponin I Total Protein Albumin Urine Color Urine Appearance Urine pH Ur Specific [place] Urine Protein Urine Glucose (UA) Urine Ketones Urine Blood Urine Nitrite Urine Bilirubin Urine Urobilinogen Ur Leukocyte Esterase Ur Random Creatinine U Random Total Protein Ur Random Sodium Ur Random Potassium Ur Random Chloride Ur Random Urea Nitrogn 463 Urine Creatinine Protein/Creatinin Ratio Stool Occult Blood Opiates Screen Methadone Screen Barbiturate Screen Phencyclidine Screen Ur Amphetamines Screen MDMA (Ecstasy) Screen Benzodiazepines Screen Cocaine Screen U Marijuana (THC) Screen Blood Type Antibody Screen Crossmatch Active Medications Generic Name Dose Route Start Last Admin Trade Name Freq PRN Reason Stop Dose Admin Acetaminophen 650 mg 11/10/19 14:12 11/10/19 16:03 Tylenol - PO 650 mg Q6H PRN Administration Fever Amiodarone HCl 100 mg 11/10/19 10:00 11/10/19 09:11 Cordarone - PO 100 mg DAILY TERESO Administration Atorvastatin Calcium 40 mg 11/10/19 22:00 Lipitor - PO HS TERESO Budesonide/Formoterol Fumarate 1 puff 11/10/19 03:32 Symbicort 160/4.5mcg - IH DAILY PRN ASTHMA Carvedilol 6.25 mg 11/10/19 10:00 11/10/19 09:12 Coreg - PO 6.25 mg BID TERESO Administration Diltiazem HCl 240 mg 11/10/19 10:00 11/10/19 09:09 Cardizem Cd - PO 240 mg DAILY TERESO Administration Folic Acid 1 mg 11/10/19 10:00 11/10/19 09:12 Folic Acid - PO 1 mg DAILY TERESO Administration Pantoprazole Sodium 40 mg 11/10/19 10:00 11/10/19 09:13 Protonix - PO 40 mg DAILY TERESO Administration Rivaroxaban 20 mg 11/10/19 18:00 11/10/19 17:22 Xarelto PO 20 mg DAILY@1800 TERESO Administration ASSESSMENT/PLAN: 64 M with PMH of HTN, HLD, asthma, COPD, chronic back pain, CHF, pacemaker for Afib, and polysubstance abuse, who presented from [facility] rehab for respiratory distress. Patient was stable upon arrival to hospital. Patient found to be anemic on presentation. 1) Anemia -Patient was transfused 1 unit PRBC with Hgb of 8.1 on admission. F/U CBC pending -Patient currently not having any symptoms of weakness, no overt bleeding. -Monitor Hgb and transfuse if Hgb< 7 -F/U repeat stool occult blood -Record request sent for GI records for prior procedures (EGD, colonoscopy, at [facility]). Spoke with revenue agent who had hospital d/c summary who informed me that he had small bowel angiectasias on EGD and some polyps (path unknown) on colonoscopy. -Protonix 40 mg PO daily as per his old GI recommendations. 2)CATHY -baseline Creatinine as per Planer Operator / Grader is 1.3 -UA negative -Renal U/S negative -monitor BMP -holding lasix and spironolactone for now 3)AFib -Cardizem 240 mg PO QDaily -Xarelto 20 mg PO Qdaily -Amiodarone 100 mg PO Daily -Carvedilol 6.25 mg PO BID -Spoke with revenue agent who confirmed his cardiac meds 4)Substance Abuse -Counseling on stopping cocaine and heroin use. -Addiction medicine consulted, appreciate recs -Is from [facility], patient is currently trying to detox 5)HTN -Carvedilol 6.25 mg PO BID 6)HLD -Atorvastatin 40 mg PO HS F:Oral intake, monitor I/O E:Monitor BMP N:Sodium restricted diet DVT: on Xarelto Dispo: Patient stable, continue monitoring H&H until stable for return to Detox at [facility]. Visit type - Emergency Visit Emergency Visit: Yes ED Registration Date: 11/10/19 Care time: The patient presented to the Emergency Department on the above date and was hospitalized for further evaluation of their emergent condition. - New Patient This patient is new to me today: Yes Date on this admission: 11/10/19 - Critical Care Critical Care patient: No ATTENDING PHYSICIAN STATEMENT I saw and evaluated the patient. I reviewed the resident's note and discussed the case with the resident. I agree with the resident's findings and plan as documented. SUBJECTIVE: OBJECTIVE: ASSESSMENT AND PLAN:
[2019-11-10 18:51] LABS: HEMATOCRIT 31.4 % (35.4-49); HEMOGLOBIN 9.7 GM/dL (11.7-16.9); MCH 25.4 pg (25.7-33.7); MCHC 30.9 g/dl (32.0-35.9); MEAN CELL VOLUME 82.2 fl (80-96); PLATELET COUNT 314 K/MM3 (134-434); RBC 3.83 M/mm3 (4.00-5.60); RDW 21.7 % (11.9-15.9); WHITE BLOOD COUNT 5.8 K/mm3 (4.0-10.0)
[2019-11-10 19:29] LABS: ALBUMIN 3.6 g/dl (3.4-5.0); BILIRUBIN,TOTAL 0.5 mg/dL (0.2-1); CALCIUM 8.6 mg/dL (8.5-10.1); CREATININE 1.3 mg/dL (0.55-1.3); MAGNESIUM 2.3 mg/dL (1.8-2.4); N-TERMINAL BNP 326.5 pg/ml (5-125); PHOSPHOROUS 3.2 mg/dL (2.5-4.9); POTASSIUM 4.8 mmol/L (3.5-5.1); TOT PROT 6.6 g/dl (6.4-8.2)
[2019-11-10] MEDS: ATORVASTATIN CA 40 MG TABLET (FP) PO SCH (22:01)
[2019-11-10] MEDS ORDERED: DOCUSATE SODIUM 100 MG CAPSULE (FP) PO ONE (23:38)
[2019-11-10] MEDS ORDERED: LORazepam 1 MG TABLET PO ONE (23:38)
[2019-11-11] MEDS: AMIODARONE HCL 200 MG TABLET (FP) PO SCH (10:24)
[2019-11-11] MEDS: FOLIC ACID 1 MG TABLET (FP) PO SCH (10:24)
[2019-11-11] MEDS: CARVEDILOL 6.25 MG TABLET (FP) PO SCH ×2 (10:24→22:05)
[2019-11-11] MEDS: PANTOPRAZOLE 40 MG TABLET (FP) PO SCH (10:24)
[2019-11-11] MEDS ORDERED: ONDANSETRON 4 MG/2 ML VIAL IVPUSH PRN (11:46)
--- NOTE | 2019-11-11 12:32 | CON.GI ---
Consult Consult Specialty:: Gastroenterology Reason for Consultation:: Anemia - History of Present Illness Chief Complaint: Shortness of breath History of Present Illness: 64yo male h/o asthma, COPD, chronic back pain, CHF, s/p pacemaker, polysubstance abuse (cocaine and heroin) presents from [facility] rehab with worsening shortness of breath asked to evaluate for anemia. Pt states she was at rehab and reported increased shortness of breath over the past few days, worsened on exertion. Denies chest pain or abdominal pain. Reports regular formed bm, denies melena or hematochezia. Reports some mild nausea and retching sensation which he feels are his withdrawal symptoms. Last used cocaine and heroin on Saturday. Denies etoh. No known family h/o colon ca. Pt reports similar symptoms with increased sob prompting hospitalization at [facility] 2-3 months ago, states he had EGD and colonoscopy, told he had a bleeding lesion in the stomach which was treated ? AVMs. Reports not currently available. No interval GI follow up. - History Source History Provided By: Patient, Medical Record - Alcohol/Substance Use Hx Alcohol Use: No - Smoking History Smoking history: Current every day smoker Have you smoked in the past 12 months: Yes Aproximately how many cigarettes per day: 20 Home Medications - Allergies Allergies/Adverse Reactions: Allergies Allergy/AdvReac Type Severity Reaction Status Date / Time lisinopril Allergy Verified 11/09/19 16:44 - Home Medications Home Medications: Ambulatory Orders Atorvastatin Ca [Lipitor] 40 mg PO HS 05/25/19 Budesonide/Formeterol Fumarate [SYMBICORT 160/4.5mcg -] 1 inh PO DAILY PRN 05/25 Carvedilol 6.25 mg PO BID 05/25/19 Diltiazem HCl [Diltiazem ER] 240 mg PO DAILY 05/25/19 Furosemide [Lasix -] 20 mg PO DAILY 05/25/19 Pantoprazole Sodium 40 mg PO DAILY 05/25/19 Rivaroxaban [Xarelto -] 20 mg PO DAILY 05/25/19 Spironolactone 12.5 mg PO DAILY 05/25/19 Amiodarone HCl 100 mg PO DAILY 11/09/19 Ferrous Fumarate 324 mg PO DAILY 11/09/19 Umeclidinium Brm/Vilanterol Tr [Anoro Ellipta 62.5-25 Mcg INH] 1 each IH DAILY 11/09/19 Diltiazem Cd [Cardizem Cd -] 240 mg PO DAILY 11/10/19 Review of Systems - Review of Systems Constitutional: reports: No Symptoms Cardiovascular: reports: No Symptoms Respiratory: reports: SOB, SOB on Exertion Gastrointestinal: reports: Nausea Physical Exam-GI Vital Signs: Vital Signs Temperature 98.2 F 11/11/19 05:00 Pulse Rate 65 11/11/19 05:00 Respiratory Rate 11/11/19 05:00 Blood Pressure 128/64 11/11/19 05:00 O2 Sat by Pulse Oximetry (%) 98 11/10/19 21:00 Constitutional: Yes: No Distress, Calm, Other (Alert/oriented) Cardiovascular: Yes: WNL, Regular Rate and Rhythm Respiratory: Yes: WNL, Regular, CTA Bilaterally ...Palpate: Yes: Other (Abd soft, nontender, nondistended Rectal exam: scant brown stool, no blood) Labs: CBC, BMP 11/10/19 18:00 11/10/19 18:00 Problem List - Problems (1) Anemia Assessment/Plan: 64yo male h/o asthma, COPD, chronic back pain, CHF, s/p pacemaker, polysubstance abuse (cocaine and heroin last used on saturday) presents from [facility] rehab with worsening shortness of breath asked to evaluate for anemia. FOBT negative. Evidence of iron deficiency noted with no overt bleeding and Hb similar to prior labs in May. Recent EGD/colonoscopy reported at outside facilities for similar symptoms (reports not available). -Continue to monitor Hb and for evidence of bleeding -PPI daily -Would request primary team please obtain recent endoscopy reports from [facility] to confirm findings -While no urgency for endoscopy in absence of overt bleeding, pending review of recent endoscopy reports and clarification if xarelto could be held, may consider further endoscopic evaluation once pt further optimized -Withdrawal precautions and further recommendations per addiction medicine Code(s): D64.9 - ANEMIA, UNSPECIFIED Qualifiers: Anemia type: unspecified type Qualified Code(s): D64.9 - Anemia, unspecified
[2019-11-11] MEDS ORDERED: METHADONE HCL 10 MG TABLET PO ONE (13:32)
[2019-11-11] MEDS ORDERED: cloNIDine HCL 0.1 MG TABLET PO PRN (13:32)
[2019-11-11] MEDS ORDERED: ACETAMINOPHEN 325 MG TABLET (FP) PO PRN (13:36)
--- NOTE | 2019-11-11 13:48 | PN ---
Physical Exam: SUBJECTIVE: Patient seen and examined in the morning. No acute events overnight. Patient complains of generalized body pain, mild nausea. No fever, no vomiting, diarrhea, chest pains, shortness of breath. OBJECTIVE: Vital Signs Period Temp Pulse Resp BP Sys/Cordero Pulse Ox Last 24 Hr 98.0 F-98.5 F 57-67 18-19 108-133/64-92 98 GENERAL: The patient is awake, alert, and fully oriented, in no acute distress. HEAD: Normal with no signs of trauma. EYES: PERRL, extraocular movements intact, sclera anicteric, conjunctiva clear. No ptosis. ENT: Ears normal, nares patent, oropharynx clear without exudates, moist mucous membranes. NECK: Trachea midline, full range of motion, supple. LUNGS: Breath sounds equal, clear to auscultation bilaterally, no wheezes, no crackles, no accessory muscle use. HEART: Regular rate and rhythm, S1, S2 without murmur, rub or gallop. ABDOMEN: Soft, nontender, nondistended, normoactive bowel sounds, no guarding, no rebound, no hepatosplenomegaly, no masses. EXTREMITIES: 2+ pulses, warm, well-perfused, no edema. NEUROLOGICAL: Cranial nerves II through XII grossly intact. Normal speech, gait not observed. PSYCH: Normal mood, normal affect. SKIN: Warm, dry, normal turgor, no rashes or lesions noted Laboratory Results - last 24 hr 11/10/19 11/10/19 11/10/19 18:00 18:00 18:00 WBC RBC Hgb Hct MCV MCH MCHC RDW Plt Count MPV Retic Count 3.04 H Sodium 136 Potassium 4.8 Chloride 103 Carbon Dioxide 28 Anion Gap 5 L BUN 14.0 Creatinine 1.3 Est GFR (CKD-EPI)AfAm 67.30 Est GFR (CKD-EPI)NonAf 58.07 Random Glucose 82 Calcium 8.6 Phosphorus 3.2 Magnesium 2.3 Iron TIBC Iron Saturation Unsaturated IBC Ferritin Total Bilirubin 0.5 AST 14 L ALT 18 Alkaline Phosphatase 92 B-Natriuretic Peptide 326.5 H Total Protein 6.6 Albumin 3.6 Blood Type O POSITIVE 11/10/19 11/10/19 18:00 18:00 WBC 5.8 RBC 3.83 L Hgb 9.7 L Hct 31.4 L D MCV 82.2 MCH 25.4 L MCHC 30.9 L RDW 21.7 H Plt Count 314 MPV 9.0 Retic Count Sodium Potassium Chloride Carbon Dioxide Anion Gap BUN Creatinine Est GFR (CKD-EPI)AfAm Est GFR (CKD-EPI)NonAf Random Glucose Calcium Phosphorus Magnesium Iron 23 L TIBC 432 Iron Saturation 5 L Unsaturated IBC 409 H Ferritin 20.1 Total Bilirubin AST ALT Alkaline Phosphatase B-Natriuretic Peptide Total Protein Albumin Blood Type Active Medications Generic Name Dose Route Start Last Admin Trade Name Freq PRN Reason Stop Dose Admin Acetaminophen 650 mg 11/10/19 14:12 11/10/19 16:03 Tylenol - PO 650 mg Q6H PRN Administration Fever Amiodarone HCl 100 mg 11/10/19 10:00 11/11/19 10:24 Cordarone - PO 100 mg DAILY TERESO Administration Atorvastatin Calcium 40 mg 11/10/19 22:00 11/10/19 22:01 Lipitor - PO 40 mg HS TERESO Administration Budesonide/Formoterol Fumarate 1 puff 11/10/19 03:32 Symbicort 160/4.5mcg - IH DAILY PRN ASTHMA Carvedilol 6.25 mg 11/10/19 10:00 11/11/19 10:24 Coreg - PO 6.25 mg BID TERESO Administration Diltiazem HCl 240 mg 11/10/19 10:00 11/11/19 10:24 Cardizem Cd - PO 240 mg DAILY TERESO Administration Folic Acid 1 mg 11/10/19 10:00 11/11/19 10:24 Folic Acid - PO 1 mg DAILY TERESO Administration Ondansetron HCl 4 mg 11/11/19 11:46 Zofran Injection IVPUSH Q4H PRN NAUSEA AND/OR VOMITING Pantoprazole Sodium 40 mg 11/10/19 10:00 11/11/19 10:24 Protonix - PO 40 mg DAILY TERESO Administration Rivaroxaban 20 mg 11/10/19 18:00 11/10/19 17:22 Xarelto PO 20 mg DAILY@1800 TERESO Administration Senna 1 tab 11/11/19 22:00 Senna - PO HS TERESO ASSESSMENT/PLAN: 64 M with PMH of HTN, HLD, asthma, COPD, chronic back pain, CHF, pacemaker for Afib, and polysubstance abuse, who presented from [facility] rehab for respiratory distress. Patient was stable upon arrival to hospital. Patient found to be anemic on presentation. 1) Anemia -Patient was transfused 1 unit PRBC with Hgb of 8.1 on admission. F/U CBC pending -Patient currently not having any symptoms of weakness, no overt bleeding. -Monitor Hgb and transfuse if Hgb< 7 -F/U repeat stool occult blood -Record request sent for GI records for prior procedures (EGD, colonoscopy, at [facility]). Spoke with college or university department head who had hospital d/c summary who informed me that he had small bowel angiectasias on EGD and some polyps (path unknown) on colonoscopy. -While no urgency for endoscopy in absence of overt bleeding, pending review of recent endoscopy reports and clarification if xarelto could be held, may consider further endoscopic evaluation once pt further optimized -Protonix 40 mg PO daily as per GI recommendations. -GI consulted, appreciate recs 2)CATHY -baseline Creatinine as per Custom Home Installer is 1.3 -UA negative -Renal U/S negative -monitor BMP -holding lasix and spironolactone for now 3)AFib -Cardizem 240 mg PO QDaily -Xarelto 20 mg PO Qdaily -Amiodarone 100 mg PO Daily -Carvedilol 6.25 mg PO BID -Spoke with college or university department head who confirmed his cardiac meds -Cardiology, consulted appreciate recs 4)Substance Abuse -Counseling on stopping cocaine and heroin use. -On Severe methadone detox, as per discussion with Dr. Fong -Addiction medicine consulted, appreciate recs -Is from [facility], patient is currently trying to detox 5)HTN -Carvedilol 6.25 mg PO BID 6)HLD -Atorvastatin 40 mg PO HS F:Oral intake, monitor I/O E:Monitor BMP N:Sodium restricted diet DVT: on Xarelto Dispo: Patient stable, continue monitoring H&H until stable for return to Detox at [facility]. Visit type - Emergency Visit Emergency Visit: Yes ED Registration Date: 11/10/19 Care time: The patient presented to the Emergency Department on the above date and was hospitalized for further evaluation of their emergent condition. - New Patient This patient is new to me today: No - Critical Care Critical Care patient: No ATTENDING PHYSICIAN STATEMENT I saw and evaluated the patient. I reviewed the resident's note and discussed the case with the resident. I agree with the resident's findings and plan as documented. SUBJECTIVE: OBJECTIVE: ASSESSMENT AND PLAN:
--- NOTE | 2019-11-11 14:12 | CON.CARD ---
Consult Consult Specialty:: Cardiology Referred by:: Dion Abebe Reason for Consultation:: SOB. CHF - History of Present Illness Chief Complaint: SOB History of Present Illness: 64 year old male with a pmhx of htn, hld, copd, chronic systolic CHF s/p AICD in 2016, ?irregular heart beat on AC, cocaine/heroine abuse, and h/o GI bleeds sent from detox for sob. SOB worse last week and craving ice consistent with way he felt prior to requiring pRBC in May and July. No chest pain or palpitations. Comfortable at this time. Found to have Hgb 8.1 and s/p unit of blood with Hgb now 9s and feeling little better. CXR no effusion/chf EKG: sinus rhythm with pac's, and anterolateral T wave abnormalities and pac's CATHY 1.7 - History Source History Provided By: Patient, Medical Record - Alcohol/Substance Use Hx Alcohol Use: No - Smoking History Smoking history: Current every day smoker Have you smoked in the past 12 months: Yes Aproximately how many cigarettes per day: 20 Home Medications - Allergies Allergies/Adverse Reactions: Allergies Allergy/AdvReac Type Severity Reaction Status Date / Time lisinopril Allergy Verified 11/09/19 16:44 - Home Medications Home Medications: Ambulatory Orders Atorvastatin Ca [Lipitor] 40 mg PO HS 05/25/19 Budesonide/Formeterol Fumarate [SYMBICORT 160/4.5mcg -] 1 inh PO DAILY PRN 05/25 Carvedilol 6.25 mg PO BID 05/25/19 Diltiazem HCl [Diltiazem ER] 240 mg PO DAILY 05/25/19 Furosemide [Lasix -] 20 mg PO DAILY 05/25/19 Pantoprazole Sodium 40 mg PO DAILY 05/25/19 Rivaroxaban [Xarelto -] 20 mg PO DAILY 05/25/19 Spironolactone 12.5 mg PO DAILY 05/25/19 Amiodarone HCl 100 mg PO DAILY 11/09/19 Ferrous Fumarate 324 mg PO DAILY 11/09/19 Umeclidinium Brm/Vilanterol Tr [Anoro Ellipta 62.5-25 Mcg INH] 1 each IH DAILY 11/09/19 Diltiazem Cd [Cardizem Cd -] 240 mg PO DAILY 11/10/19 Vital Signs: Vital Signs Temperature 98.2 F 11/11/19 05:00 Pulse Rate 65 11/11/19 05:00 Respiratory Rate 19 11/11/19 05:00 Blood Pressure 128/64 11/11/19 05:00 O2 Sat by Pulse Oximetry (%) 98 11/10/19 21:00 Constitutional: Yes: No Distress Neck: Yes: Supple Respiratory: Yes: CTA Bilaterally Gastrointestinal: Yes: Soft Cardiovascular: Yes: Regular Rate and Rhythm JVD: No Carotid Bruit: No Heart Sounds: Yes: S1, S2 Murmur: No: Systolic Murmur Extremities: Yes: WNL Edema: No - Other Data Labs, Other Data: CBC, BMP 11/10/19 18:00 11/10/19 18:00 Troponin, BNP 11/10/19 18:00 B-Natriuretic Peptide 326.5 H Troponin, BNP 11/10/19 18:00 B-Natriuretic Peptide 326.5 H Imaging - Results Chest X-ray: Report Reviewed EKG: Image Reviewed Assessment/Plan 64 year old male with a pmhx of htn, hld, copd, chronic systolic CHF s/p AICD in 2016, ?irregular heart beat on AC, cocaine/heroine abuse, and h/o GI bleeds sent from detox for sob. SOB worse last week and craving ice consistent with way he felt prior to requiring pRBC in May and July. No chest pain or palpitations. Comfortable at this time. Found to have Hgb 8.1 and s/p unit of blood with Hgb now 9s and feeling little better. CXR no effusion/chf EKG: sinus rhythm with pac's, and anterolateral T wave abnormalities and pac's CATHY 1.7 1) SOB Likely related to his anemia. No signs of CHF on his exam. Renal function improved with pRBC. Continue CHF regimen carvedilol/spironolactone. Consider losartan/entresto as outpatient. EKG unchanged from previous ekg ?afib given on amiodarone and rivaroxaban. Sinus here. Would get his medical records. Substance abuse counseling. Continue anticoagulation if no contraindication from anemia/GI standpoint. GI consult and follow up given recurrent need for transfusion. Will sign off at this time. Outpatient follow up with Dr. Calvo [phone]
--- NOTE | 2019-11-11 15:33 | CONSULT ---
Consult Detox [facility] Reason for Current Admission/Consult: Patient sent from rehab due to shortness of breath. - History History of Present Illness: He is now more comfortable after receiving PRBC's He is being cleared to return to Rehab. - History Source History Provided By: Medical Record Limitations to Obtaining History: No Limitations - Alcohol/Substance Use Hx Alcohol Use: No Hx Substance Use: Yes (heroin) Hx Substance Use Treatment: Yes (rehab) - Current Drug/Alcohol Use Heroin Frequency: Daily Amount used: 5 bags daily Date of Last Use: 11/09/19 - Past Surgical History Past Surgical History: Yes: None - Significant Medical Findings: 1. Opioid use disorder: Patient can return to rehab upon medical clearance. He is not having any severe withdrawals due to initiation of methadone detox protocol. If he is cleared by all specialties, then he can be transferred back to [facility] for either detox or continuation in rehab. Dr. Fong COWS - Scale Resting Pulse: 0= ND 80 or Below Restless Observation: 0= Sits Still Pupil Size: 1= Pupils >than Normal Bone or Joint Aches: 1= Mild Discomfort Runny Nose/ Eye Tearin= None GI Upset > 30mins: 0= None Tremor Observation: 0= None Yawning Observation: 0= None Anxiety or Irritability: 0= None Goose Flesh Skin: 0=Smooth Skin
--- NOTE | 2019-11-11 17:04 | PN ---
Teaching Attending Note Name of Resident: Dilip Lomax ATTENDING PHYSICIAN STATEMENT I saw and evaluated the patient. I reviewed the resident's note and discussed the case with the resident. I agree with the resident's findings and plan as documented. SUBJECTIVE: Reports ongoing Dyspnea, but unable to further characterize. No chest pain/palpitations. No cough/sputum/hemoptysis. No orthopnea/PND. No fever/ chills. Reports nausea, no vomiting. OBJECTIVE: Afebrile, Hemodynamically Stable. AAO x 3. Last Vital Signs Temp Pulse Resp BP Pulse Ox 97.2 F L 75 18 146/91 98 11/11/19 14:15 11/11/19 14:15 11/11/19 14:15 11/11/19 14:15 11/10/19 21:00 General - appears comfortbale, not in distress. Heart - S1, S2, RRR Lungs - clear to auscultation Abdomen - Softm non-tender. Bowel Sounds normal. Extremities - no edema, no calf tenderness. Laboratory Results - last 24 hr 11/10/19 11/10/19 11/10/19 18:00 18:00 18:00 WBC RBC Hgb Hct MCV MCH MCHC RDW Plt Count MPV Retic Count 3.04 H Sodium 136 Potassium 4.8 Chloride 103 Carbon Dioxide 28 Anion Gap 5 L BUN 14.0 Creatinine 1.3 Est GFR (CKD-EPI)AfAm 67.30 Est GFR (CKD-EPI)NonAf 58.07 Random Glucose 82 Calcium 8.6 Phosphorus 3.2 Magnesium 2.3 Iron TIBC Iron Saturation Unsaturated IBC Ferritin Total Bilirubin 0.5 AST 14 L ALT 18 Alkaline Phosphatase 92 B-Natriuretic Peptide 326.5 H Total Protein 6.6 Albumin 3.6 Blood Type O POSITIVE 11/10/19 11/10/19 18:00 18:00 WBC 5.8 RBC 3.83 L Hgb 9.7 L Hct 31.4 L D MCV 82.2 MCH 25.4 L MCHC 30.9 L RDW 21.7 H Plt Count 314 MPV 9.0 Retic Count Sodium Potassium Chloride Carbon Dioxide Anion Gap BUN Creatinine Est GFR (CKD-EPI)AfAm Est GFR (CKD-EPI)NonAf Random Glucose Calcium Phosphorus Magnesium Iron 23 L TIBC 432 Iron Saturation 5 L Unsaturated IBC 409 H Ferritin 20.1 Total Bilirubin AST ALT Alkaline Phosphatase B-Natriuretic Peptide Total Protein Albumin Blood Type Current Medications Generic Name Dose Route Start Last Admin Trade Name Freq PRN Reason Stop Dose Admin Acetaminophen 650 mg 11/11/19 13:36 11/11/19 13:52 Tylenol - PO 650 mg Q6H PRN Administration PAIN LEVEL 1-5 Amiodarone HCl 100 mg 11/10/19 10:00 11/11/19 10:24 Cordarone - PO 100 mg DAILY TERESO Administration Atorvastatin Calcium 40 mg 11/10/19 22:00 11/10/19 22:01 Lipitor - PO 40 mg HS TERESO Administration Budesonide/Formoterol Fumarate 1 puff 11/11/19 22:00 Symbicort 160/4.5mcg - IH BID TERESO Carvedilol 6.25 mg 11/10/19 10:00 11/11/19 10:24 Coreg - PO 6.25 mg BID TERESO Administration Clonidine 0.1 mg 11/11/19 13:32 Catapres - PO 11/13/19 23:59 Q4H PRN Withdrawal Symptoms Diltiazem HCl 240 mg 11/10/19 10:00 11/11/19 10:24 Cardizem Cd - PO 240 mg DAILY TERESO Administration Folic Acid 1 mg 11/10/19 10:00 11/11/19 10:24 Folic Acid - PO 1 mg DAILY TERESO Administration Methadone HCl 5 mg 11/16/19 06:00 Dolophine - PO 11/16/19 06:01 ONCE@0600 ONE Methadone HCl 20 mg/ Methadone 25 mg 11/12/19 06:00 HCl 5 mg PO 11/12/19 06:01 ONCE@0600 ONE Methadone HCl 20 mg 11/13/19 06:00 Dolophine - PO 11/13/19 06:01 0600 ONE Methadone HCl 10 mg/ Methadone 15 mg 11/14/19 06:00 HCl 5 mg PO 11/14/19 06:01 0600 ONE Methadone HCl 10 mg 11/15/19 06:00 Dolophine - PO 11/15/19 06:01 0600 ONE Ondansetron HCl 4 mg 11/11/19 11:46 Zofran Injection IVPUSH Q4H PRN NAUSEA AND/OR VOMITING Pantoprazole Sodium 40 mg 11/10/19 10:00 11/11/19 10:24 Protonix - PO 40 mg DAILY TERESO Administration Rivaroxaban 20 mg 11/10/19 18:00 11/10/19 17:22 Xarelto PO 20 mg DAILY@1800 TERESO Administration Senna 1 tab 11/11/19 22:00 Senna - PO HS [facility] Home Medications Medication Instructions Recorded Atorvastatin Ca [Lipitor] 40 mg PO HS 05/25/19 Budesonide/Formeterol Fumarate 1 inh PO DAILY PRN 05/25/19 [SYMBICORT 160/4.5mcg -] Carvedilol 6.25 mg PO BID 05/25/19 Diltiazem HCl [Diltiazem ER] 240 mg PO DAILY 05/25/19 Furosemide [Lasix -] 20 mg PO DAILY 05/25/19 Pantoprazole Sodium 40 mg PO DAILY 05/25/19 Rivaroxaban [Xarelto -] 20 mg PO DAILY 05/25/19 Spironolactone 12.5 mg PO DAILY 05/25/19 Amiodarone HCl 100 mg PO DAILY 11/09/19 Ferrous Fumarate 324 mg PO DAILY 11/09/19 Umeclidinium Brm/Vilanterol Tr 1 each IH DAILY 11/09/19 [Anoro Ellipta 62.5-25 Mcg INH] Diltiazem Cd [Cardizem Cd -] 240 mg PO DAILY 11/10/19 ASSESSMENT AND PLAN: 64 year old male with history of Chronic Systolic CHF/Cardiomypathy (EF 35%) s/ p AICD, Atrial Fibrillation - on xarelto, HTN, HLD, Asthma/COPD, chronic back pain, Polysubstance abuse (Cocaine/Heroine), reported recent hospital stay x 2 for anemia, requiring PRBC, s/p EGD with AVMs, s/p Colonscopy 07/20 with polyps, sent from [facility] with exertional dyspnea, found to have severe anemia. 1. Dyspnea secondary to Chronic Blood Loss Anemia No evidence of acute blood loss. Iron Sat 5%, Hx AVMs on recent EGD H/H 9.7/31.4 s/p 1 unit PRBCs. FOBT neg GI consulted for further evaluation and recommendations given JERICA and recent EGD /[facility] findings. Continue PPI No evidence of COPDE or decompensated CHF as cause for dyspnea. Cardiology consulted 2. CATHY - resolving Renal US - no obstruction, fatty liver. Lasix/Aldactone held. 3. Atrial fibrillation, on Xarelto. Continue Amiodarone/Diltiazem/Coreg. TSH requested. 4. HTN - continue Diltiazem and Coreg. Spironolactone held. 5. HLD - continue Lipitor. 6. Asthma/COPD - no evidence of acute exacerbation. Continue AnoroEllipta and Symbicort. 7. Polysubstance Abuse (cocaine, heroin) - Methadone detox protocol. Addiction Medicine consulted. 8. Chronic Systolic CHF/Cardiomypathy (EF 35%) s/p AICD. Lasix/Spironolactone held due to CATHY - will resume tomorrow pending renal function. DVT Px - on Xarelto Dispo - [facility] once stable.
[2019-11-11] MEDS: RIVAROXABAN 20 MG TABLET PO SCH (17:10)
[2019-11-11] MEDS: BUDESONIDE/FORMETEROL FUMARATE 160/4.5 mcg INHALER IH SCH (21:58)
[2019-11-11] MEDS ORDERED: SENNOSIDES 8.6MG TABLET (FP) PO SCH (22:00)
[2019-11-11] MEDS: ATORVASTATIN CA 40 MG TABLET (FP) PO SCH (22:05)
[2019-11-12] MEDS ORDERED: ALBUTEROL SO4 0.083% IH SOL 2.5 MG/3 ML VIAL.NEB. NEB ONE (01:35)
[2019-11-12] MEDS ORDERED: ALBUTEROL SO4 2.5/IPRATROPIUM 0.5 INH SOL 3 ML VIAL.NEB. NEB PRN (01:48)
[2019-11-12] MEDS ORDERED: METHADONE HCL 5 MG TABLET ONE (05:19)
[2019-11-12] MEDS ORDERED: METHADONE HCL 10 MG TABLET ONE (05:19)
[2019-11-12] MEDS ORDERED: METHADONE 20 MG, METHADONE 5 MG PO ONE ×2 (06:00→10:00)
[2019-11-12 07:39] LABS: BASO % 1.2 % (0-2.0); HEMATOCRIT 30.2 % (35.4-49); HEMOGLOBIN 9.5 GM/dL (11.7-16.9); LYMPH % 16.9 % (8-40); MCH 25.4 pg (25.7-33.7); MCHC 31.5 g/dl (32.0-35.9); MEAN CELL VOLUME 80.5 fl (80-96); MEAN PLT VOLUME 8.5 fl (7.5-11.1); MONO % 10.4 % (3.8-10.2); NEUT % 67.5 % (42.8-82.8); PLATELET COUNT 303 K/MM3 (134-434); RBC 3.75 M/mm3 (4.00-5.60); RDW 21.3 % (11.9-15.9); WHITE BLOOD COUNT 5.9 K/mm3 (4.0-10.0)
[2019-11-12] MEDS ORDERED: ALBUTEROL SO4 2.5/IPRATROPIUM 0.5 INH SOL 3 ML VIAL.NEB. NEB SCH (08:00)
[2019-11-12 08:18] LABS: BLOOD UREA NITROGEN 17.1 mg/dL (7-18); CALCIUM 8.7 mg/dL (8.5-10.1); CREATININE 1.3 mg/dL (0.55-1.3); POTASSIUM 4.4 mmol/L (3.5-5.1)
[2019-11-12] MEDS: CARVEDILOL 6.25 MG TABLET (FP) PO SCH (09:56)
[2019-11-12] MEDS: FOLIC ACID 1 MG TABLET (FP) PO SCH (09:56)
[2019-11-12] MEDS: AMIODARONE HCL 200 MG TABLET (FP) PO SCH (09:56)
[2019-11-12] MEDS: BUDESONIDE/FORMETEROL FUMARATE 160/4.5 mcg INHALER IH SCH (09:56)
[2019-11-12] MEDS: PANTOPRAZOLE 40 MG TABLET (FP) PO SCH (09:56)
--- NOTE | 2019-11-12 14:07 | PN.GI ---
GI Progress Note Subjective: No acute events No overt bleeding Guaiac negative on specimen sent to lab Blood pressure control is currently main issue Patient lives in [facility] [place] and upon further discussion, knows about his diagnosis of anemia. He alludes to having had colonoscopy and EGD as well as capsule endoscopy in recent past. Records from recent EGD was obtained. 01/02/19 had EGD revealing normal esophagus, gastritis, non-bleeding ectasia in the duodenum that was treated with APC. Duodenum otherwise described as normal. Had colonoscopy same day that revealed internal hemorrhoids, 3mm sigmoid polyp in the colon and fair prep was noted. Repeat colonoscopy for screening purposes was advised. These were performed by Dr. Alexx Cano. His PMD is Dr. Theodore Galindo in [facility]. [phone]. - Objective Vital Signs: Vital Signs Temperature 97.9 F 11/12/19 10:00 Pulse Rate 69 11/12/19 10:00 Respiratory Rate 16 11/12/19 10:00 Blood Pressure 132/86 11/12/19 10:00 O2 Sat by Pulse Oximetry (%) 94 L 11/12/19 09:00 Constitutional: Calm Eyes: No: Sclera Icterus Cardiovascular: Yes: Regular Rate and Rhythm Respiratory: Yes: CTA Bilaterally Gastrointestinal Inspection: No: Distention ...Auscultate: Yes: Normoactive Bowel Sounds ...Palpate: Yes: Soft. No: Hepatomegaly, Splenomegaly, Tenderness Edema: No (No LE edema) Labs: CBC, BMP 11/12/19 07:20 11/12/19 07:20 Problem List - Problems (1) Anemia Assessment/Plan: Known anemia with iron deficiency component and recent GI work-up. ? if capsule endoscopy was performed as patient alludes to this. No overt bleeding currently and guaiac negative. In the midst of detox and BP control management issues Will need further evaluation of anemia as outpatient. Consider further hematology work-up to exclude alternate etiologies. Would contact the patient's PMD in [place] and assure that continued GI work-up is arranged for when Mr. Maier returns home to [place]. This will also help clarify if he has had any other GI work-up including the capsule endoscopy that he alluded to. Per colonoscopy report provided, he will need a repeat colonoscopy given fair prep. Monitor for over bleeding BP management per Primary team Code(s): D64.9 - ANEMIA, UNSPECIFIED Qualifiers: Anemia type: unspecified type Qualified Code(s): D64.9 - Anemia, unspecified
--- NOTE | 2019-11-12 14:17 | PN ---
Progress Note, Physician Chief Complaint: No chest pain or sob History of Present Illness: 64 year old male with a pmhx of htn, hld, copd, chronic systolic CHF s/p AICD in 2016, ?irregular heart beat on AC, cocaine/heroine abuse, and h/o GI bleeds sent from detox for sob. SOB worse last week and craving ice consistent with way he felt prior to requiring pRBC in May and July. No chest pain or palpitations. Comfortable at this time. Found to have Hgb 8.1 and s/p unit of blood with Hgb now 9s and feeling little better. CXR no effusion/chf EKG: sinus rhythm with pac's, and anterolateral T wave abnormalities and pac's CATHY 1.7 - Current Medication List Current Medications: Active Medications Acetaminophen (Tylenol -) 650 mg PO Q6H PRN PRN Reason: PAIN LEVEL 1-5 Last Admin: 11/11/19 13:52 Dose: 650 mg Albuterol/Ipratropium (Duoneb -) 1 amp NEB RQID PRN PRN Reason: Dyspnea Last Admin: 11/12/19 02:00 Dose: 1 amp Amiodarone HCl (Cordarone -) 100 mg PO DAILY [facility] Last Admin: 11/12/19 09:56 Dose: 100 mg Atorvastatin Calcium (Lipitor -) 40 mg PO HS [facility] Last Admin: 11/11/19 22:05 Dose: 40 mg Budesonide/Formoterol Fumarate (Symbicort 160/4.5mcg -) 1 puff IH BID [facility] Last Admin: 11/12/19 09:56 Dose: 1 puff Carvedilol (Coreg -) 6.25 mg PO BID [facility] Last Admin: 11/12/19 09:56 Dose: 6.25 mg Clonidine (Catapres -) 0.1 mg PO Q4H PRN PRN Reason: Withdrawal Symptoms Stop: 11/13/19 23:59 Last Admin: 11/12/19 13:31 Dose: 0.1 mg Diltiazem HCl (Cardizem Cd -) 240 mg PO DAILY [facility] Last Admin: 11/12/19 09:56 Dose: 240 mg Folic Acid (Folic Acid -) 1 mg PO DAILY [facility] Last Admin: 11/12/19 09:56 Dose: 1 mg Methadone HCl (Dolophine -) 5 mg PO ONCE@0600 ONE Stop: 11/16/19 06:01 Methadone HCl (Dolophine -) 20 mg PO 0600 ONE Stop: 11/13/19 06:01 Methadone HCl 10 mg/ Methadone (HCl 5 mg) 15 mg PO 0600 ONE Stop: 11/14/19 06:01 Methadone HCl (Dolophine -) 10 mg PO 0600 ONE Stop: 11/15/19 06:01 Ondansetron HCl (Zofran Injection) 4 mg IVPUSH Q4H PRN PRN Reason: NAUSEA AND/OR VOMITING Pantoprazole Sodium (Protonix -) 40 mg PO DAILY [facility] Last Admin: 11/12/19 09:56 Dose: 40 mg Rivaroxaban (Xarelto) 20 mg PO DAILY@1800 [facility] Last Admin: 11/11/19 17:10 Dose: 20 mg Senna (Senna -) 1 tab PO HS [facility] Last Admin: 11/11/19 22:06 Dose: 1 tab - Objective Vital Signs: Vital Signs Temperature 97.9 F 11/12/19 10:00 Pulse Rate 69 11/12/19 10:00 Respiratory Rate 16 11/12/19 10:00 Blood Pressure 132/86 11/12/19 10:00 O2 Sat by Pulse Oximetry (%) 94 L 11/12/19 09:00 Constitutional: Yes: No Distress Neck: Yes: Supple Cardiovascular: Yes: Regular Rate and Rhythm, S1, S2. No: JVD Respiratory: Yes: CTA Bilaterally Gastrointestinal: Yes: Soft Edema: No Labs: CBC, BMP 11/12/19 07:20 11/12/19 07:20 Assessment/Plan 64 year old male with a pmhx of htn, hld, copd, chronic systolic CHF s/p AICD in 2016, ?irregular heart beat on AC, cocaine/heroine abuse, and h/o GI bleeds sent from detox for sob. SOB worse last week and craving ice consistent with way he felt prior to requiring pRBC in May and July. No chest pain or palpitations. Comfortable at this time. Found to have Hgb 8.1 and s/p unit of blood with Hgb now 9s and feeling little better. CXR no effusion/chf EKG: sinus rhythm with pac's, and anterolateral T wave abnormalities and pac's CATHY 1.7 1) SOB Likely related to his anemia. No signs of CHF on his exam. Renal function improved with pRBC. Continue CHF regimen carvedilol/spironolactone. Consider losartan/entresto as outpatient. EKG unchanged from previous ekg ?afib given on amiodarone and rivaroxaban. Sinus here. Would get his medical records. Unclear why on diltiazem given low LVEF. Would prefer to titrate up carvedilol and wean off diltiazem if tolerates. Substance abuse counseling. Continue anticoagulation if no contraindication from anemia/GI standpoint. GI consult and follow up given recurrent need for transfusion. Will sign off at this time. Outpatient follow up with Dr. Calvo [phone]
--- NOTE | 2019-11-12 16:53 | DS ---
Physical Exam: SUBJECTIVE: Patient seen and examined in the morning. No acute events overnight. No complaints of chest pain, no shortness of breath, no abdominal pain, no nausea, vomiting, diarrhea. OBJECTIVE: Vital Signs Period Temp Pulse Resp BP Sys/Cordero Pulse Ox Last 24 Hr 97.9 F-98.7 F 64-77 16-18 112-195/61-132 94-99 PHYSICAL EXAM GENERAL: The patient is awake, alert, and fully oriented, in no acute distress. HEAD: Normal with no signs of trauma. EYES: PERRL, extraocular movements intact, sclera anicteric, conjunctiva clear. No ptosis. ENT: Ears normal, nares patent, oropharynx clear without exudates, moist mucous membranes. NECK: Trachea midline, full range of motion, supple. LUNGS: Breath sounds equal, clear to auscultation bilaterally, no wheezes, no crackles, no accessory muscle use. HEART: Regular rate and rhythm, S1, S2 without murmur, rub or gallop. ABDOMEN: Soft, nontender, nondistended, normoactive bowel sounds, no guarding, no rebound, no hepatosplenomegaly, no masses. EXTREMITIES: 2+ pulses, warm, well-perfused, no edema. NEUROLOGICAL: Cranial nerves II through XII grossly intact. Normal speech, gait not observed. PSYCH: Normal mood, normal affect. SKIN: Warm, dry, normal turgor, no rashes or lesions noted LABS Laboratory Results - last 24 hr 11/10/19 11/12/19 11/12/19 18:00 07:20 07:20 WBC 5.9 RBC 3.75 L Hgb 9.5 L Hct 30.2 L MCV 80.5 MCH 25.4 L MCHC 31.5 L RDW 21.3 H Plt Count 303 MPV 8.5 Absolute Neuts (auto) 4.0 Neutrophils % 67.5 Lymphocytes % 16.9 Monocytes % 10.4 H Eosinophils % 4.0 Basophils % 1.2 Nucleated RBC % 0 Sodium 134 L Potassium 4.4 Chloride 101 Carbon Dioxide 27 Anion Gap 6 L BUN 17.1 Creatinine 1.3 Est GFR (CKD-EPI)AfAm 67.30 Est GFR (CKD-EPI)NonAf 58.07 POC Glucometer Random Glucose 124 H Calcium 8.7 TSH 3.14 PTH Intact 45 11/12/19 12:56 WBC RBC Hgb Hct MCV MCH MCHC RDW Plt Count MPV Absolute Neuts (auto) Neutrophils % Lymphocytes % Monocytes % Eosinophils % Basophils % Nucleated RBC % Sodium Potassium Chloride Carbon Dioxide Anion Gap BUN Creatinine Est GFR (CKD-EPI)AfAm Est GFR (CKD-EPI)NonAf POC Glucometer 135 Random Glucose Calcium TSH PTH Intact HOSPITAL COURSE: Date of Admission:11/10/19 Date of Discharge: 11/12/19 64 M with PMH of HTN, HLD, asthma, COPD, chronic back pain, CHF, pacemaker for Afib, and polysubstance abuse, who presented from [facility] rehab for respiratory distress. Patient was stable upon arrival to hospital. Patient found to be anemic on presentation. Was transfused 1 unit PRBC with Hgb of 8.1 on admission. Last Hgb was 9.5. Patient has no signs of overt bleeding. GI consulted and ruled that no urgent need for endoscopy or colonoscopy. Stool occult blood was negative. Obtained records of last colonoscopy and endoscopy at [facility], which showed gastritis, small angioectasia that was coagulated, and internal hemmorhoids in 01/2019. Patient will have further outpatient follow up with GI for colonoscopy. Patient was continued on home cardiac medications. Echo was completed which showed similar function as discussed with patient's outpatient casing crew pusher. Was continued on home medications. Patient was started on methadone protocol as per Dr. Fong. Patient was referred to hematology for further work up of anemia. Imaging done this admission: Chest X-Ray: No evidence of active pulmonary disease. No pneumothorax, large pleural effusion is seen. Renal U/S: Both kidneys appear unremarkable. Slightly echogenic included portion of the liver suggestive of mild fatty infiltration versus hepatocellular disease. Please correlate with liver enzymes. Echocardiogram: The left ventricle is normal in size. Septal motion is consistent with conduction abnormality. There is posterior wall akinesis. There is inferior wall akinesis. There is mild global hypokinesis of the left ventricle. Left ventricular systolic function is moderately reduced. Ejection Fraction = 35%. The right ventricle is normal in size and function. There is a pacemaker lead in the right ventricle. There is trace to mild mitral regurgitation. There is mild tricuspid regurgitation. There is moderate pulmonary hypertension. Right ventricular systolic pressure is elevated at 45 mmhg. There is mild to moderate aortic valve thickening. Trace aortic regurgitation. Minutes to complete discharge: 30 Discharge Summary Problems reviewed: Yes Reason For Visit: SHORTNESS OF BREATH, ANEMIA Current Active Problems Cocaine abuse, uncomplicated (Chronic) Opioid dependence (Chronic) Condition: Improved - Instructions Diet, Activity, Other Instructions: You were admitted to the hospital because you were having shortness of breath at [facility] detox facility. While you were here we continued your home medications and monitored your breathing. We had the casing crew pusher see you, who did not think your shortness of breath was due to your pre-existing cardiac conditions. We did a scan of your heart which showed it was functioning the same as your prior echocardiogram with your casing crew pusher Dr. Chwe. We spoke with your casing crew pusher who recommended we continue you on your home medications. We had the Clinical Study Manager evaluate you as well, and they did not feel that you need any immediate colonoscopy or endoscopy was needed. We transfused 1 unit of blood as your were anemic and your blood levels have been stable while you have been in the hospital. You were started on methadone detox protocol while you were here. It was started on 11/11/19. MEDICATIONS: Please continue your home medications as directed. Please continue your detox protocol as started. Your addiction medicine specialists at [facility] will be able to further tailor your detox medications. You are scheduled for: Methadone 20 mg Once on 11/13/19 Methadone 15 mg Once on 11/14/19 Methadone 10 mg Once on 11/15/19 Methadone 5 mg Once on 11/16/19 Clonidine 0.4 mg, by mouth, as needed for elevated blood pressure every 4 hours. Zofran 4mg by IV, every 4 hours as needed for Nausea/vomiting. REFERRALS: Please follow up with your primary care physician Dr. Galindo to update him on this admission and continue your health maintenance. Please follow up with your casing crew pusher Dr. Ferguson to update them on this admission and continue managing your cardiac conditions. Please follow up with your manager product design to have a repeat colonoscopy with good bowel prep. If you do not have one, we are including a referral to the GI doctor who saw you here. Please follow up with a manufacturing production manager for further evaluation of your anemia. If you do not have one, you may make an appointment to see Dr. Lake. Office location is: [address] [place] [address], [place] [address]. . SPECIAL INSTRUCTIONS: Please update your physicians on this admission. You should have a repeat colonoscopy with your GI doctor as an outpatient. Return to the emergency department if you have any blood in your stool, worsening weakness, chest pain, shortness of breath, or worsening of your symptoms. Referrals: Theodore Galindo MD [Other] - 1 Week Magdaleno Chew MD [Other] - 1 Week Shante Oh MD [Staff Physician] - 1 Week Khadar Lake MD [Staff Physician] - 1 Week Disposition: TRANSFER ACUTE CARE/OTHER HOSP - Home Medications Comprehensive Discharge Medication List: Ambulatory Orders Atorvastatin Ca [Lipitor] 40 mg PO HS 05/25/19 Budesonide/Formeterol Fumarate [SYMBICORT 160/4.5mcg -] 1 inh PO DAILY PRN 05/25 Carvedilol 6.25 mg PO BID 05/25/19 Furosemide [Lasix -] 20 mg PO DAILY 05/25/19 Pantoprazole Sodium 40 mg PO DAILY 05/25/19 Rivaroxaban [Xarelto -] 20 mg PO DAILY 05/25/19 Spironolactone 12.5 mg PO DAILY 05/25/19 Amiodarone HCl 100 mg PO DAILY 11/09/19 Ferrous Fumarate 324 mg PO DAILY 11/09/19 Umeclidinium Brm/Vilanterol Tr [Anoro Ellipta 62.5-25 Mcg INH] 1 each IH DAILY 11/09/19 Diltiazem Cd [Cardizem Cd -] 240 mg PO DAILY 11/10/19 Ondansetron Injection [Zofran Injection] 4 mg IVPUSH Q4H PRN vial 11/12/19 This patient is new to me today: No Emergency Visit: Yes ED Registration Date: 11/10/19 Care time: The patient presented to the Emergency Department on the above date and was hospitalized for further evaluation of their emergent condition. Critical Care patient: No - Discharge Referral Referred to [facility] No ATTENDING PHYSICIAN STATEMENT I saw and evaluated the patient. I reviewed the resident's note and discussed the case with the resident. I agree with the resident's findings and plan as documented. SUBJECTIVE: OBJECTIVE: ASSESSMENT AND PLAN:
[2019-11-12] MEDS: RIVAROXABAN 20 MG TABLET PO SCH (17:07)
[2019-11-12 17:43] VITALS: BP 143/97; PULSE 66; TEMP 97.5
--- NOTE | 2019-11-12 18:28 | PN ---
Teaching Attending Note Name of Resident: Dilip Lomax ATTENDING PHYSICIAN STATEMENT I saw and evaluated the patient. I reviewed the resident's note and discussed the case with the resident. I agree with the resident's findings and plan as documented. SUBJECTIVE: Feeling better, less SOB, no chest pain/palpitations. No cough/ sputum/hemoptysis. No orthopnea/PND. No fever/chills. OBJECTIVE: Afebrile, Hemodynamically Stable. AAO x 3. Last Vital Signs Temp Pulse Resp BP Pulse Ox 97.5 F L 66 18 143/97 94 L 11/12/19 17:41 11/12/19 17:41 11/12/19 17:41 11/12/19 17:41 11/12/19 09:00 General - appears comfortable, not in distress. Heart - S1, S2, RRR Lungs - clear to auscultation Abdomen - Soft, non-tender. Bowel Sounds normal. Extremities - no edema, no calf tenderness. Laboratory Results - last 24 hr 11/10/19 11/12/19 11/12/19 18:00 07:20 07:20 WBC 5.9 RBC 3.75 L Hgb 9.5 L Hct 30.2 L MCV 80.5 MCH 25.4 L MCHC 31.5 L RDW 21.3 H Plt Count 303 MPV 8.5 Absolute Neuts (auto) 4.0 Neutrophils % 67.5 Lymphocytes % 16.9 Monocytes % 10.4 H Eosinophils % 4.0 Basophils % 1.2 Nucleated RBC % 0 Sodium 134 L Potassium 4.4 Chloride 101 Carbon Dioxide 27 Anion Gap 6 L BUN 17.1 Creatinine 1.3 Est GFR (CKD-EPI)AfAm 67.30 Est GFR (CKD-EPI)NonAf 58.07 POC Glucometer Random Glucose 124 H Calcium 8.7 TSH 3.14 PTH Intact 45 11/12/19 12:56 WBC RBC Hgb Hct MCV MCH MCHC RDW Plt Count MPV Absolute Neuts (auto) Neutrophils % Lymphocytes % Monocytes % Eosinophils % Basophils % Nucleated RBC % Sodium Potassium Chloride Carbon Dioxide Anion Gap BUN Creatinine Est GFR (CKD-EPI)AfAm Est GFR (CKD-EPI)NonAf POC Glucometer 135 Random Glucose Calcium TSH PTH Intact Discharge Medications Medication Instructions Recorded Atorvastatin Ca [Lipitor] 40 mg PO HS 05/25/19 Budesonide/Formeterol Fumarate 1 inh PO DAILY PRN 05/25/19 [SYMBICORT 160/4.5mcg -] Carvedilol 6.25 mg PO BID 05/25/19 Furosemide [Lasix -] 20 mg PO DAILY 05/25/19 Pantoprazole Sodium 40 mg PO DAILY 05/25/19 Rivaroxaban [Xarelto -] 20 mg PO DAILY 05/25/19 Spironolactone 12.5 mg PO DAILY 05/25/19 Amiodarone HCl 100 mg PO DAILY 11/09/19 Ferrous Fumarate 324 mg PO DAILY 11/09/19 Umeclidinium Brm/Vilanterol Tr 1 each IH DAILY 11/09/19 [Anoro Ellipta 62.5-25 Mcg INH] Diltiazem Cd [Cardizem Cd -] 240 mg PO DAILY 11/10/19 Ondansetron Injection [Zofran 4 mg IVPUSH Q4H PRN vial 11/12/19 Injection] ASSESSMENT AND PLAN: 64 year old male with history of Chronic Systolic CHF/Cardiomypathy (EF 35%) s/ p AICD, Atrial Fibrillation - on xarelto, HTN, HLD, Asthma/COPD, chronic back pain, Polysubstance abuse (Cocaine/Heroine), reported recent hospital stay x 2 for anemia, requiring PRBC, s/p EGD with AVMs, s/p Colonscopy 07/20 with polyps, sent from [facility] with exertional dyspnea, found to have severe anemia. 1. Dyspnea secondary to Chronic Blood Loss Anemia/Iron Deficiency Anemia No evidence of acute blood loss. Iron Sat 5%, Hx AVMs on recent EGD H/H 9.9/31.8 s/p 1 unit PRBCs. FOBT neg GI consulted for further evaluation and recommendations given JERICA and recent EGD /[place] findings - recommend outpatient GI follow up and further work-up. Continue PPI No evidence of COPDE or decompensated CHF as cause for dyspnea. Cardiology evaluated and signed off. 2. CATHY - resolved Renal US - no obstruction, fatty liver. Lasix/Aldactone resumed 3. Atrial fibrillation, on Xarelto. Continue Amiodarone/Diltiazem/Coreg. TSH wnl. 4. HTN - continue Diltiazem and Coreg, Spironolactone. 5. HLD - continue Lipitor. 6. Asthma/COPD - no evidence of acute exacerbation. Continue AnoroEllipta and Symbicort. 7. Polysubstance Abuse (cocaine, heroin) - Methadone detox protocol. Addiction Medicine evaluated - medically stable for transfer to [facility] to complete Detox. 8. Chronic Systolic CHF/Cardiomypathy (EF 35%) s/p AICD. - resumed on lasix and Spironolactone. DVT Px - on Xarelto Dispo - [facility]
[2019-11-13] MEDS ORDERED: METHADONE HCL 10 MG TABLET PO ONE ×2 (06:00→10:00)
[2019-11-14] MEDS ORDERED: METHADONE 10 MG, METHADONE 5 MG PO ONE ×2 (06:00→10:00)
[2019-11-15] MEDS ORDERED: METHADONE HCL 10 MG TABLET PO ONE ×2 (06:00→10:00)
[2019-11-16] MEDS ORDERED: METHADONE HCL 5 MG TABLET PO ONE (06:00)
== END 2019-11-12 18:05 | disposition short-term general hospital (02) | DRG 812 ==
LOC: JER 19:08 → JERBED 11-10 00:09 → J7W 11-10 04:58
PROVIDERS: ADMIT Internal Medicine
DX: D64.9 Anemia, unspecified (principal); R06.02 Shortness of breath; J44.9 Chronic obstructive pulmonary disease, unspecified; M54.9 Dorsalgia, unspecified; I48.91 Unspecified atrial fibrillation; Z95.0 Presence of cardiac pacemaker; E78.00 Pure hypercholesterolemia, unspecified; I45.10 Unspecified right bundle-branch block; F14.10 Cocaine abuse, uncomplicated; F19.10 Other psychoactive substance abuse, uncomplicated
CPT/HCPCS: 36415; 36430; 36511; 71046-TC-FY; 76775-TC; 80048; 80053; 80307; 81003; 82272; 82436; 82550; 82553; 82565; 82570; 82728; 82962; 83540; 83550; 83735; 83880; 83970; 84100; 84105; 84133; 84156; 84300; 84443; 84484; 84540; 85025; 85027; 85044; 85730; 86850; 86900; 86901; 86922; 93005; 93010; 93306-TC; 94640; 99284-25; J0735; P9038; P9058

== ENCOUNTER 2019-11-12 18:39 | Inpatient (IN) | payer OTHER, BC ==
[2019-11-12 21:29] VITALS: BMI 30.9
--- NOTE | 2019-11-12 22:46 | HP ---
COWS - Scale Resting Pulse: 0= [place] 80 or Below Sweatin= No chills or Flushing Restless Observation: 0= Sits Still Pupil Size: 0= Normal to Room Light Bone or Joint Aches: 0= None Runny Nose/ Eye Tearin= None GI Upset > 30mins: 0= None Tremor Observation: 0= None Yawning Observation: 0= None Anxiety or Irritability: 0= None Goose Flesh Skin: 0=Smooth Skin COWS Score: 0 CIWA Score - Admission Criteria OASAS Guidelines: Admission for Medically Managed Detox: Requires at least one of the followin. CIWA greater than 12 2. Seizures within the past 24 hours 3. Delirium tremens within the past 24 hours 4. Hallucinations within the past 24 hours 5. Acute intervention needed for co occurring medical disorder 6. Acute intervention needed for co occurring psychiatric disorder 7. Severe withdrawal that cannot be handled at a lower level of care (continued vomiting, continued diarrhea, abnormal vital signs) requiring intravenous medication and/or fluids 8. Admitting History and Physical - Past Surgical History Past Surgical History: Yes: None - Smoking History Smoking history: Current every day smoker Have you smoked in the past 12 months: Yes Aproximately how many cigarettes per day: 20 - Alcohol/Substance Use Hx Alcohol Use: No Admission ROS [facility] Allergies/Adverse Reactions: Allergies Allergy/AdvReac Type Severity Reaction Status Date / Time lisinopril Allergy Verified 11/12/19 21:23 History of Present Illness: pt here for cocaine and heroin use s/p hospitalization for anemia , PRBCs x 1 , reports feeling better , still w/ some shortness of breath , agreeable to f/ up w/ PC upon d/c . heroin : 1 -2 bags /day via inhalation x 40 years , not daily , every other day x 2 weeks . etoh - occasional tobacco : 1/2 -1 ppd . PMHX : AICD / low Ef 2015 , claims activated 1 yr ago told he had had ID , has own wire drawing machine operator in [place] reports blood transfusions x 2 first 2 mo ago and 2 weeks ago @ [facility] , GI bleed cauterized @ [place] . Chronic Systolic CHF/Cardiomypathy (EF 35%) s/p AICD, Atrial Fibrillation - on xarelto, HTN, HLD, Asthma/COPD, chronic back pain, s/p EGD with AVMs, s/p Colonscopy 07/20 with polyps, PSHX : umbilical hernia - Ebola screening Have you traveled outside of the country in the last 21 days: No (N) Have you had contact with anyone from an Ebola affected area: No Do you have a fever: No - Review of Systems Constitutional: No Symptoms Reported EENT: reports: Other (glasses , denies dysphagia) Respiratory: reports: See HPI, Cough, SOB with Exertion Cardiac: reports: No Symptoms Reported GI: reports: No Symptoms Reported : reports: No Symptoms Reported Musculoskeletal: reports: Back Pain Integumentary: reports: No Symptoms Reported Neuro: reports: No Symptoms reported Endocrine: reports: See HPI Psychiatric: reports: Orientated x3 Patient History - Patient Medical History Hx Anemia: No Hx Asthma: Yes Hx Chronic Obstructive Pulmonary Disease (COPD): No Hx Cancer: No Hx Cardiac Disorders: Yes Hx Congestive Heart Failure: No Hx Hypertension: Yes Hx Hypercholesterolemia: Yes Hx Pacemaker: Yes HX Cerebrovascular Accident: No Hx Seizures: No Hx Dementia: No Hx Diabetes: No Hx Gastrointestinal Disorders: No Hx Liver Disease: No Hx Genitourinary Disorders: No Hx Sexually Transmitted Disorders: No Hx Renal Disease (ESRD): No Hx Thyroid Disease: No Hx Human Immunodeficiency Virus (HIV): No Hx Hepatitis C: No Hx Depression: No Hx Suicide Attempt: No Hx Bipolar Disorder: No Hx Schizophrenia: No - Patient Surgical History Past Surgical History: No Hx Neurologic Surgery: No Hx Cataract Extraction: No Hx Cardiac Surgery: No Hx Lung Surgery: No Hx Breast Surgery: No Hx Breast Biopsy: No Hx Abdominal Surgery: Yes (HERNIA REPAIR) Hx Appendectomy: No Hx Cholecystectomy: No Hx Genitourinary Surgery: No Hx Section: No Hx Orthopedic Surgery: No Hx Hysterectomy: No Other Surgical History: DEFIBILLATOR 2015 Anesthesia Reaction: No - Smoking Cessation Smoking history: Current every day smoker Have you smoked in the past 12 months: Yes Aproximately how many cigarettes per day: 20 Cigars Per Day: 0 Hx Chewing Tobacco Use: No Initiated information on smoking cessation: Yes 'Breaking Loose' booklet given: 11/12/19 - Substances abused Cocaine Substance route: Smoking Frequency: Daily Amount used: $150 Age of first use: 15 Date of last use: 11/09/19 Heroin Other (specify): HEROIN Substance route: Inhalation Frequency: Daily Amount used: 2 BAGS Age of first use: 15 Date of last use: 11/09/19 Crack Substance route: Smoking Frequency: Daily Amount used: $150 Age of first use: 15 Date of last use: 11/09/19 Admission Physical Exam BHS - Vital Signs Vital Signs: Vital Signs - 24 hr 11/12/19 21:19 Temperature 97.1 F L Pulse Rate 75 Respiratory 18 Rate Blood Pressure 184/116 H - Physical General Appearance: Yes: No Apparent Distress HEENTM: Yes: EOMI, Hearing grossly Normal, Normocephalic, Normal Voice Respiratory: Yes: Chest Non-Tender, Lungs Clear, Decreased Breath Sounds, No Respiratory Distress, No Accessory Muscle Use Neck: Yes: No masses,lesions,Nodules, Trachea in good position Cardiology: Yes: Regular Rhythm, Regular Rate, S1, S2 Abdominal: Yes: Non Tender, Soft Musculoskeletal: Yes: Gait Steady Extremities: Yes: Normal Inspection, Normal Range of Motion, Non-Tender Neurological: Yes: Fully Oriented, Alert, Motor Strength 5/5 Integumentary: Yes: Warm - Diagnostic (1) Cocaine abuse, uncomplicated Current Visit: Yes Status: Chronic (2) Opioid dependence Current Visit: Yes Status: Chronic Breathalyzer - Breathalyzer Breathalyzer: 0 Urine Drug Screen - Test Device Lot number: [id number] Expiration date: 07/01/21 - Control Is test valid?: Yes - Results Drug screen NEGATIVE: No Urine drug screen results: ADRIAN-Cocaine, FEN-Fentanyl, MOP-Opiates Inpatient Rehab Admission - Rehab Decision to Admit Inpatient rehab admission?: No
[2019-11-12] MEDS ORDERED: BUDESONIDE/FORMETEROL FUMARATE 160/4.5 mcg INHALER IH PRN (22:51)
[2019-11-12] MEDS ORDERED: MELATONIN 5 MG TABLETS PO PRN (22:55)
[2019-11-12] MEDS ORDERED: MAGNESIUM CITRATE 300 ML BOTTLE PO PRN (22:55)
[2019-11-12] MEDS ORDERED: MAGNESIUM HYDROX 2400MG/30ML ORAL SUSPENSION 30 ML CUP PO PRN (22:55)
[2019-11-12] MEDS ORDERED: BISMUTH SUBSALICYLATE 524 MG/30 ML UD PO PRN (22:55)
[2019-11-12] MEDS ORDERED: METHOCARBAMOL 500 MG TABLET PO PRN (22:55)
[2019-11-12] MEDS ORDERED: ALBUTEROL SO4 2.5/IPRATROPIUM 0.5 INH SOL 3 ML VIAL.NEB. NEB PRN (22:55)
[2019-11-12] MEDS ORDERED: MAG HYDROX/AL HYDROX/SIMETH 30 ML UNIT-DOSE CUP PO PRN (22:55)
[2019-11-12] MEDS ORDERED: MENTHOL/PHENOL 1 EACH UD MM PRN (22:55)
[2019-11-12] MEDS ORDERED: ACETAMINOPHEN 325 MG TABLET (FP) PO PRN (22:55)
[2019-11-12] MEDS ORDERED: cloNIDine HCL 0.1 MG TABLET PO PRN (22:56)
[2019-11-12] MEDS: CARVEDILOL 6.25 MG TABLET (FP) PO SCH (23:59)
[2019-11-13] MEDS: hydrOXYzine PAMOATE 25 MG CAPSULE (FP) PO PRN (03:18)
[2019-11-13] MEDS: ACETAMINOPHEN 325 MG TABLET (FP) PO PRN (06:21)
[2019-11-13] MEDS ORDERED: METHADONE HCL 5 MG TABLET (FOR DETOX USE ONLY) PO ONE (10:00)
[2019-11-13] MEDS: CARVEDILOL 6.25 MG TABLET (FP) PO SCH ×2 (10:23→23:03)
[2019-11-13] MEDS: PRENATAL VITAMINS W/ FOLIC ACID TABLET (FP) PO SCH (10:23)
[2019-11-13] MEDS: PANTOPRAZOLE 40 MG TABLET PO SCH (10:23)
[2019-11-13] MEDS: AMIODARONE HCL 200 MG TABLET PO SCH (10:24)
[2019-11-13] MEDS ORDERED: BUDESONIDE/FORMETEROL FUMARATE 160/4.5 mcg INHALER IH ONE (10:55)
--- NOTE | 2019-11-13 12:13 | PN ---
B[facility] COWS - Scale Resting Pulse: 0= [place] 80 or Below Sweatin= Chills/Flushing Restless Observation: 1= Difficult to Sit Still Pupil Size: 1= Pupils >than Normal Bone or Joint Aches: 1= Mild Discomfort Runny Nose/ Eye Tearin= None GI Upset > 30mins: 0= None Tremor Observation of Outstretched Hands: 1= Tremor [place], Not Seen Yawning Observation: 0= None Anxiety or Irritability: 1=Feels Anxious/Irritable Goose Flesh Skin: 0=Smooth Skin COWS Score: 6 BHS Progress Note (SOAP) Subjective: interrupted sleep, sweats, shakes lbp Objective: 11/13/19 12:10 Vital Signs Temperature 97.7 F 11/13/19 10:18 Pulse Rate 66 11/13/19 10:18 Respiratory Rate 18 11/13/19 10:18 Blood Pressure 103/72 11/13/19 10:18 O2 Sat by Pulse Oximetry (%) 97% on RA pending labs pt aox3 in nad ambulating well Assessment: 11/13/19 12:12 withdrawal sx's anemia copd/asthma Plan: cont detox increase fluids symbicort 2 puffs bid feso4 2325mg bid
[2019-11-13] MEDS: RIVAROXABAN 20 MG TABLET PO SCH (17:15)
--- NOTE | 2019-11-13 18:57 | PN ---
[facility] Progress Note Note: called by nursing for pt c/o SOB, pt states "not feeling well " since about 1- hours ago , reports he feels shortness of breath at rest , and " I am afraid to go to sleep " , states he heard a " noise " in his chest and thinks the defibrillator went off. 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 Chronic Systolic CHF/Cardiomypathy (EF 35%) s/p AICD, Atrial Fibrillation - on xarelto, HTN, HLD, Asthma/COPD, chronic back pain, s/p EGD with AVMs, s/p Colonscopy 07/20 with polyps, Vital Signs - 24 hr 11/12/19 11/13/19 11/13/19 21:19 01:39 03:36 Temperature 97.1 F L Pulse Rate 75 Respiratory 18 18 18 Rate Blood Pressure 184/116 H O2 Sat by Pulse Oximetry (%) 11/13/19 11/13/19 11/13/19 07:42 10:18 12:59 Temperature 97.9 F 97.7 F 98.2 F Pulse Rate 71 66 74 Respiratory 20 18 18 Rate Blood Pressure 124/94 103/72 137/96 O2 Sat by Pulse Oximetry (%) 11/13/19 11/13/19 17:01 17:09 Temperature 97.1 F L Pulse Rate 65 97 H Respiratory 18 Rate Blood Pressure 140/74 O2 Sat by Pulse 98 Oximetry (%) O : CV RRR S1 S2 , AICD in place left anterior chest wall . Resp : lungs CTA b/l , + mild accessory mm use and mouth- breathing . P : send to [facility] ED for further eval and tx - report to Dr Beckford
[2019-11-13] MEDS: FERROUS SO4 325 MG TABLET (FP) PO SCH (23:03)
[2019-11-13] MEDS: BUDESONIDE/FORMETEROL FUMARATE 160/4.5 mcg INHALER IH SCH (23:04)
[2019-11-13] MEDS: ATORVASTATIN CA 40 MG TABLET (FP) PO SCH (23:04)
[2019-11-13] MEDS: THIAMINE HCL 100 MG TABLET (FP) PO SCH (23:04)
--- NOTE | 2019-11-14 00:52 | PN ---
[facility] Progress Note Note: CLIENT RETURNS FROM [facility] AFTER BEING EVALUATED FOR SOB. ALL TEST AND SCREENING NEGATIVE FOR ACUTE PATHOLOGY. CLIENT WAS CLEARED AND RETURNS BACK TO COMPLETE DETOX. Medical Decision Making - Medical Decision Making 11/13/19 21:13 64 yo M discharged yesterday, presenting with SOB. - CBC, CMP - EKG, trop, BNP - Xray - dispo accordingly 11/13/19 21:35 CXR without acute pathology compared to X ray three days ago, however, will be unable to assess entire R lung base or the lateral. Will get repeat X ray. 11/13/19 21:41 Hgb 9.7, Cr 1.5 from baseline around 1.3, BNP 564.3, K 5.3. 11/13/19 22:26 EKG with normal sinus at 65 bpm, incomplete RBBB, T wave inversions in V4-V6 present in prior EKG. EKG overall appears improved from prior. 11/13/19 23:01 Repeat CXR without acute pathology. Will plan to dc back to [facility].
[2019-11-14] MEDS: hydrOXYzine PAMOATE 25 MG CAPSULE (FP) PO PRN (01:01)
[2019-11-14] MEDS: ACETAMINOPHEN 325 MG TABLET (FP) PO PRN (05:43)
[2019-11-14] MEDS ORDERED: METHADONE HCL 10 MG TABLET (FOR DETOX USE ONLY) PO ONE (10:00)
[2019-11-14] MEDS: PANTOPRAZOLE 40 MG TABLET PO SCH (11:38)
[2019-11-14] MEDS: PRENATAL VITAMINS W/ FOLIC ACID TABLET (FP) PO SCH (11:38)
[2019-11-14] MEDS: FERROUS SO4 325 MG TABLET (FP) PO SCH ×2 (11:38→22:14)
[2019-11-14] MEDS: BUDESONIDE/FORMETEROL FUMARATE 160/4.5 mcg INHALER IH SCH ×2 (12:08→22:15)
[2019-11-14] MEDS: CARVEDILOL 6.25 MG TABLET (FP) PO SCH ×2 (12:08→22:15)
[2019-11-14] MEDS: AMIODARONE HCL 200 MG TABLET PO SCH (12:08)
--- NOTE | 2019-11-14 14:10 | PN ---
[facility] COWS - Scale Resting Pulse: 1= CA 81-100 Sweatin= Chills/Flushing Restless Observation: 1= Difficult to Sit Still Pupil Size: 1= Pupils >than Normal Bone or Joint Aches: 1= Mild Discomfort Runny Nose/ Eye Tearin= Nasal Congestion GI Upset > 30mins: 1= Stomach Cramp Tremor Observation of Outstretched Hands: 1= Tremor [place], Not Seen Yawning Observation: 1= 1-2x During Session Anxiety or Irritability: 1=Feels Anxious/Irritable Goose Flesh Skin: 0=Smooth Skin COWS Score: 10 [facility] Progress Note (SOAP) Subjective: pt was sent to ER yesterday for SOB- eval negative, pt states the detox is working and overall feeling better. pt has a PCP- Dr. Combs, in . pt states living with ex- pt does not want to get into MAT methadone/suboxone b/c he wants to be abstinenta/p: O: Vital Signs - 24 hr 11/13/19 11/13/19 11/14/19 17:01 17:09 01:00 Temperature 97.1 F L 97.9 F Pulse Rate 65 97 H 70 Respiratory 18 20 Rate Blood Pressure 140/74 152/99 O2 Sat by Pulse 98 Oximetry (%) 11/14/19 11/14/19 11/14/19 03:30 05:51 06:26 Temperature 98.2 F Pulse Rate 70 70 Respiratory 18 18 18 Rate Blood Pressure 121/75 O2 Sat by Pulse Oximetry (%) 11/14/19 11/14/19 09:32 14:05 Temperature 97.3 F L 96.6 F L Pulse Rate 73 75 Respiratory 18 18 Rate Blood Pressure 110/75 120/72 O2 Sat by Pulse Oximetry (%) a/p OUD- pt states doing well with methadone detox, pt wants to remain abstinent, to think about MAT methadone/suboxone
[2019-11-14] MEDS: RIVAROXABAN 20 MG TABLET PO SCH (17:48)
[2019-11-14] MEDS: ATORVASTATIN CA 40 MG TABLET (FP) PO SCH (22:14)
[2019-11-14] MEDS: THIAMINE HCL 100 MG TABLET (FP) PO SCH (22:14)
[2019-11-15] MEDS ORDERED: METHADONE HCL 5 MG TABLET (FOR DETOX USE ONLY) PO ONE (06:00)
[2019-11-15 06:22] VITALS: BP 146/89; PULSE 74; TEMP 98.1
--- NOTE | 2019-11-15 13:32 | DS ---
[facility] Detox Discharge Summary Admission Date: 11/12/19 Discharge Date: 11/15/19 - History Present History: Cocaine Dependence, Opioid Dependence Additional Comments: Patient completed detox successfully and discharged safely in stable condition. Patient aware to follow up with his PCP KATI. Pertinent Past History: Anemia Asthma COPD A Fib Pacemaker (AICD) implant due to PR and low EF (35%) S/P PR Chronic back pain HTN HLD History of GI bleed (cauterized) Nicotine dependence Cocaine dependence Opioid dependence - Physical Exam Results Vital Signs: Vital Signs Temperature 98.1 F 11/15/19 06:00 Pulse Rate 74 11/15/19 06:00 Respiratory Rate 18 11/15/19 06:00 Blood Pressure 146/89 11/15/19 06:00 O2 Sat by Pulse Oximetry (%) 98 11/13/19 17:01 Pertinent Admission Physical Exam Findings: Withdrawal sxs Lab results from 11/13/19 reviewed: anemia and abnormal chemistry noted, asymptomatic (patient aware to follow up with PCP KATI) - Treatment Hospital Course: Detox Protocol Followed, Detoxed Safely, Responded well, Discharged Condition Good - Medication Discharge Medications: Ambulatory Orders Atorvastatin Ca [Lipitor] 40 mg PO HS 05/25/19 Budesonide/Formeterol Fumarate [SYMBICORT 160/4.5mcg -] 1 inh PO DAILY PRN 05/25 Carvedilol 6.25 mg PO BID 05/25/19 Furosemide [Lasix -] 20 mg PO DAILY 05/25/19 Pantoprazole Sodium 40 mg PO DAILY 05/25/19 Rivaroxaban [Xarelto -] 20 mg PO DAILY 05/25/19 Spironolactone 12.5 mg PO DAILY 05/25/19 Amiodarone HCl 100 mg PO DAILY 11/09/19 Ferrous Fumarate 324 mg PO DAILY 11/09/19 Umeclidinium Brm/Vilanterol Tr [Anoro Ellipta 62.5-25 Mcg INH] 1 each IH DAILY 11/09/19 Diltiazem Cd [Cardizem Cd -] 240 mg PO DAILY 11/10/19 Ondansetron Injection [Zofran Injection] 4 mg IVPUSH Q4H PRN vial 11/12/19 - Diagnosis (1) Chronic back pain Current Visit: Yes Status: Chronic (2) History of GI bleed Current Visit: Yes Status: Acute (3) History of PR (myocardial infarction) Current Visit: Yes Status: Chronic (4) Cocaine abuse, uncomplicated Current Visit: Yes Status: Chronic (5) Opioid dependence with withdrawal Current Visit: Yes Status: Acute (6) SOB (shortness of breath) Current Visit: Yes Status: Chronic (7) Asthma Current Visit: Yes Status: Chronic Qualifiers: Asthma severity: mild Asthma persistence: intermittent Asthma complication type: uncomplicated Qualified Code(s): J45.20 - Mild intermittent asthma, uncomplicated (8) COPD (chronic obstructive pulmonary disease) Current Visit: Yes Status: Chronic Qualifiers: COPD type: unspecified COPD Qualified Code(s): J44.9 - Chronic obstructive pulmonary disease, unspecified (9) Cardiac defibrillator in place Current Visit: Yes Status: Chronic (10) HLD (hyperlipidemia) Current Visit: Yes Status: Chronic Qualifiers: Hyperlipidemia type: unspecified Qualified Code(s): E78.5 - Hyperlipidemia , unspecified (11) HTN (hypertension) Current Visit: Yes Status: Chronic Qualifiers: Hypertension type: essential hypertension Qualified Code(s): I10 - Essential (primary) hypertension (12) Nicotine dependence Current Visit: Yes Status: Chronic Qualifiers: Nicotine product type: cigarettes Substance use status: uncomplicated Qualified Code(s): F17.210 - Nicotine dependence, cigarettes, uncomplicated (13) Anemia Current Visit: Yes Status: Chronic Qualifiers: Anemia type: unspecified type Qualified Code(s): D64.9 - Anemia, unspecified - AMA Did Patient Leave Against Medical Advice: No (Instructed to follow up with PCP KATI)
== END 2019-11-15 08:00 | disposition home or self-care (01) | DRG 897 ==
LOC: YASAS 18:39 → Y6N 23:06
PROVIDERS: ADMIT Allergy & Immunology; ATTEND Allergy & Immunology
PROC: HZ2ZZZZ Detoxification Services for Substance Abuse Treatment (ICD-10-PCS; principal; 2019-11-12)
DX: F11.23 Opioid dependence with withdrawal (principal); F14.20 Cocaine dependence, uncomplicated; F17.210 Nicotine dependence, cigarettes, uncomplicated; I10 Essential (primary) hypertension; I48.91 Unspecified atrial fibrillation; I25.2 Old myocardial infarction; E78.5 Hyperlipidemia, unspecified; D64.9 Anemia, unspecified; J45.20 Mild intermittent asthma, uncomplicated; J44.9 Chronic obstructive pulmonary disease, unspecified; M54.5 Low back pain; G89.29 Other chronic pain; R06.02 Shortness of breath; Z95.810 Presence of automatic (implantable) cardiac defibrillator; Z88.8 Allergy status to other drugs, medicaments and biological substances
CPT/HCPCS: 94640

== ENCOUNTER 2019-11-13 19:25 | Emergency (ER) | payer BC ==
--- NOTE | 2019-11-13 20:18 | PDOC ---
History of Present Illness - General Stated Complaint: DIFFICULY BREATHING Time Seen by Provider: 11/13/19 20:16 - History of Present Illness Initial Comments: 11/13/19 20:17 64 yo M PMH HTN, HLD, anemia requiring transfusions in the past, asthma, COPD, chronic back pain, CHF, pacemaker for Afib, polysubstance abuse (heroin/cocaine) , notably discharged yesterday after admission from [facility] for SOB, found to be anemic (Hgb 8.1) and transfused 1 unit of pRBCs, presenting from [facility] with SOB. Was meant to follow with hematology for anemia workup and GI for outpatient colonoscopy. Reports that he felt good when he was discharged yesterday. However, this morning he felt SOB with exertion. Took a 1 hour nap around noon hoping this would resolve, but into the evening his SOB worsened until he had it at rest. Denies CP, ELLISON, N/V, fevers/chills, bloody stools, constipation/diarrhea. Endorses SOB with exertion and at rest. Past History - Past Medical History Allergies/Adverse Reactions: Allergies Allergy/AdvReac Type Severity Reaction Status Date / Time lisinopril Allergy Verified 11/13/19 20:19 Home Medications: Ambulatory Orders Atorvastatin Ca [Lipitor] 40 mg PO HS 05/25/19 Budesonide/Formeterol Fumarate [SYMBICORT 160/4.5mcg -] 1 inh PO DAILY PRN 05/25 Carvedilol 6.25 mg PO BID 05/25/19 Furosemide [Lasix -] 20 mg PO DAILY 05/25/19 Pantoprazole Sodium 40 mg PO DAILY 05/25/19 Rivaroxaban [Xarelto -] 20 mg PO DAILY 05/25/19 Spironolactone 12.5 mg PO DAILY 05/25/19 Amiodarone HCl 100 mg PO DAILY 11/09/19 Ferrous Fumarate 324 mg PO DAILY 11/09/19 Umeclidinium Brm/Vilanterol Tr [Anoro Ellipta 62.5-25 Mcg INH] 1 each IH DAILY 11/09/19 Diltiazem Cd [Cardizem Cd -] 240 mg PO DAILY 11/10/19 Ondansetron Injection [Zofran Injection] 4 mg IVPUSH Q4H PRN vial 11/12/19 Anemia: No Asthma: Yes Cancer: No Cardiac Disorders: Yes CVA: No COPD: No CHF: No Dementia: No Diabetes: No GI Disorders: No Disorders: No HTN: Yes Hypercholesterolemia: Yes Kidney Stones: No Liver Disease: No Seizures: No Thyroid Disease: No - Surgical History Abdominal Surgery: Yes (HERNIA REPAIR) Appendectomy: No Cardiac Surgery: No Cholecystectomy: No Lung Surgery: No Neurologic Surgery: No Orthopedic Surgery: No - Reproductive History Testicular Surgery: No - Psycho Social/Smoking Cessation Hx Smoking History: Current every day smoker Have you smoked in the past 12 months: Yes Number of Cigarettes Smoked Daily: 20 Cigars Per Day: 0 'Breaking Loose' booklet given: 11/12/19 Hx Alcohol Use: No Drug/Substance Use Hx: Yes (heroin) Substance Use Type: Cocaine, Heroin Hx Substance Use Treatment: No Review of Systems - Review of Systems Comments:: 11/13/19 21:11 GENERAL/CONSTITUTIONAL: No fever or chills. No weakness. HEAD, EYES, EARS, NOSE AND THROAT: No change in vision. No ear pain or discharge. No sore throat. CARDIOVASCULAR: No chest pain. Shortness of breath both with exertion and at rest. RESPIRATORY: No cough, wheezing, or hemoptysis. GASTROINTESTINAL: No nausea, vomiting, diarrhea or constipation. GENITOURINARY: No dysuria, frequency, or change in urination. MUSCULOSKELETAL: No joint or muscle swelling or pain. No neck or back pain. SKIN: No rash NEUROLOGIC: No headache, vertigo, loss of consciousness, or change in strength/ sensation. ENDOCRINE: No increased thirst. No abnormal weight change. HEMATOLOGIC/LYMPHATIC: History of anemia. No easy bleeding, or history of blood clots. ALLERGIC/IMMUNOLOGIC: No hives or skin allergy *Physical Exam - Physical Exam 11/13/19 21:12 Gen: well-developed, well-nourished, NAD Neuro: AAOX4, CN II-XII intact, FTN intact, EOMI, PERRLA, 5/5 strength, SILT HEENT: atraumatic, normocephalic, dry mucous membranes Neck: trachea midline, supple CV: regular rate, regular rhythm, no murmurs, rubs, or gallops Pulm: CTA b/l, no wheezing Abd: soft, non-distended, non-tender MSK: full ROM, intact pulses Extr: no edema, no deformities Skin: warm, dry ED Treatment Course - LABORATORY CBC & Chemistry Diagram: 11/13/19 20:46 11/13/19 20:46 Medical Decision Making - Medical Decision Making 11/13/19 21:13 64 yo M discharged yesterday, presenting with SOB. - CBC, CMP - EKG, trop, BNP - Xray - dispo accordingly 11/13/19 21:35 CXR without acute pathology compared to X ray three days ago, however, will be unable to assess entire R lung base or the lateral. Will get repeat X ray. 11/13/19 21:41 Hgb 9.7, Cr 1.5 from baseline around 1.3, BNP 564.3, K 5.3. 11/13/19 22:26 EKG with normal sinus at 65 bpm, incomplete RBBB, T wave inversions in V4-V6 present in prior EKG. EKG overall appears improved from prior. 11/13/19 23:01 Repeat CXR without acute pathology. Will plan to dc back to [facility]. Discharge - Discharge Information Problems reviewed: Yes Clinical Impression/Diagnosis: SOB (shortness of breath) - Follow up/Referral - Patient Discharge Instructions Patient Printed Discharge Instructions: DI for Shortness of Breath Additional Instructions: You were seen with shortness of breath. Your EKG was unchanged from prior, and your labs were unconcerning. Your chest X ray also did not show any acute abnormalities. We will plan to have you go back to [facility] to continue your detox. Please go directly there. Follow up with your primary care doctor within 1 week. Return to the ED if you develop worsening symptoms. - Post Discharge Activity
[2019-11-13 20:37] VITALS: BP 160/100; PULSE 63; TEMP 98; BMI 30.9
[2019-11-13 21:03] LABS: HEMOGLOBIN 9.7 GM/dL (11.7-16.9); MCHC 30.8 g/dl (32.0-35.9); WHITE BLOOD COUNT 5.4 K/mm3 (4.0-10.0)
--- NOTE | 2019-11-13 21:05 | PDOC ---
Attending Attestation - Resident Resident Name: MooreMayte bermudez - HPI HPI: 11/13/19 22:44 pt presents to the ED complaining of shortness of breath. Patient has several recent admissions for the same complaint with negative work up. Most recently, was admitted and discharged [facility] after transfused one unit. Denies fever, chest pain or cough. Shortness of breath has now resolved. Patient is able to ambulate in the ED without any shortness of breath. - Physicial Exam PE: 11/13/19 22:55 agree with resident exam. PAteint is alert and oriented and in no acute distress. Lungs are clear. Speaking in full sentences without respiratory distress. - Medical Decision Making 11/13/19 23:07 Pt pesents to the ED complaining of shortness of breath that has now resolved. labs checked to evaluate for ACS or recurrent anemia. Troponin is not elevated and CBC is simlar to previous level EKG is unchanged. CXR is clear. Given that patient feels improved, will discharge to [facility]. Patient will return to the ED for worsening symptoms. 11/13/19 23:07
[2019-11-13 21:16] LABS: BASO % 0.9 % (0-2.0); EOS % 3.4 % (0-4.5); HEMATOCRIT 31.7 % (35.4-49); MCH 25.1 pg (25.7-33.7); MEAN CELL VOLUME 81.5 fl (80-96); MEAN PLT VOLUME 9.1 fl (7.5-11.1); MONO % 10.5 % (3.8-10.2); NEUT % 72.2 % (42.8-82.8); PLATELET COUNT 312 K/MM3 (134-434); RBC 3.88 M/mm3 (4.00-5.60); RDW 21.2 % (11.9-15.9)
[2019-11-13 21:35] LABS: ALBUMIN 4.1 g/dl (3.4-5.0); BILIRUBIN,TOTAL 0.5 mg/dL (0.2-1); BLOOD UREA NITROGEN 24.2 mg/dL (7-18); CALCIUM 9.1 mg/dL (8.5-10.1); CREATININE 1.5 mg/dL (0.55-1.3); N-TERMINAL BNP 564.3 pg/ml (5-125); POTASSIUM 5.3 mmol/L (3.5-5.1); TOT PROT 7.3 g/dl (6.4-8.2)
[2019-11-13 23:18] LABS: ANISOCYTOSIS 2+; MACROCYTOSIS 1+; PLATELET ESTIMATE ADEQUATE
--- NOTE | 2019-11-14 10:22 | EKG ---
Test Reason : Blood Pressure : / mmHG Vent. Rate : 065 BPM Atrial Rate : 065 BPM P-R Int : 200 ms QRS Dur : 118 ms QT Int : 428 ms P-R-T Axes : 060 -27 179 degrees QTc Int : 445 ms NORMAL SINUS RHYTHM INCOMPLETE RIGHT BUNDLE BRANCH BLOCK ABNORMAL ECG WHEN COMPARED WITH ECG OF 09-NOV-2019 21:12, PREMATURE ATRIAL COMPLEXES ARE NO LONGER PRESENT INCOMPLETE RIGHT BUNDLE BRANCH BLOCK HAS REPLACED NON-SPECIFIC INTRA-VENTRICULAR CONDUCTION BLOCK Confirmed by STEFANIA HANSON MD ([id number]) on 11/14/2019 10:22:19 AM Referred By: Confirmed By:STEFANIA HANSON MD
== END 2019-11-14 00:24 | disposition home or self-care (01) ==
LOC: JER 19:25
DX: R06.02 Shortness of breath (principal); Z88.8 Allergy status to other drugs, medicaments and biological substances; F17.210 Nicotine dependence, cigarettes, uncomplicated; I51.9 Heart disease, unspecified; J45.909 Unspecified asthma, uncomplicated; I10 Essential (primary) hypertension; E78.00 Pure hypercholesterolemia, unspecified; G89.29 Other chronic pain; Z95.0 Presence of cardiac pacemaker; I48.91 Unspecified atrial fibrillation; F19.10 Other psychoactive substance abuse, uncomplicated
CPT/HCPCS: 36415; 71046-TC-FY; 80053; 82272; 82550; 82553; 83880; 84484; 85025; 93005; 93010; 99282-25